=== PATIENT | female | born 1945 | race Caucasian/White ===

== ENCOUNTER 2016-11-13 18:16 | Emergency (ER) | payer MEDICARE ==
--- OUTSIDE RECORDS SUMMARY | 2016-11-13 18:50 | XMS REPORT | Clinical Summary ---
:1945 Author Organization [facility] [place] [address] Care Team Providers Name Role Phone Unavailable Primary Care Provider Unavailable Source Comments This disclosure is being made pursuant to the [employer] program and maynot contain all information available regarding this patient.[facility] Allergies Not on File Current Medications Be aware that medications may not be up to date as of this document. Alwaysverify current medications with the patient. Not on file Active Problems Not on file Social History Tobacco Use Types Packs/Day Years Used Date Never Assessed Sex Assigned at Date Recorded Not on file Last Filed Vital Signs Not on file Plan of Treatment Health Maintenance Due Date Last Done Comments Tetanus/Pertussis (1 - Tdap) 1966 Colonoscopy 1997 Mammogram 1997 Well Adult Visit 1997 Zoster Vaccine 60+ 2007 Bone Density 02/07/2012 Pneumococcal Low/Medium Risk 65+ (1 of 2 - PCV13) 02/07/2012 INFLUENZA IMMUNIZATION (#1) 2016 Results Not on filefrom Last 3 Months
[2016-11-13 19:06] LABS: Urine Bilirubin Negative (NEGATIVE); Urine Blood 250 /ul (NEGATIVE); Urine Ketone Negative (NEGATIVE); Urine Nitrite Negative (NEGATIVE); Urine Protein Negative (NEGATIVE); Urine Urobilinogen 4 EU/dl (NORMAL)
[2016-11-13 19:11] LABS: Hematocrit 31.9 % (37.0-47.0); Hemoglobin 10.7 gm/dL (12.5-16.0); Mean Cell Volume 93.5 fl (78-100); Mean Corpuscular Hemoglobin 31.4 pg (27-31); Mean Corpuscular Hgb Conc 33.5 g/dl (32-36); Mean Platelet Volume 10.6 fl (6.0-9.5); Neutrophil # 2.4 K/mm3 (1.3-6.0); Neutrophil % 54.5 % (42-75.0); Platelet Count 77 K/mm3 (150-450); Red Blood Count 3.41 M/mm3 (4.2-5.4); Red Cell Distribution Width 13.7 % (11.5-14.0); White Blood Count 4.5 K/mm3 (4.0-10.5)
[2016-11-13 19:16] LABS: Urine Appearance Slightly Cloudy; Urine Bacteria 3+; Urine Color Dark Yellow; Urine RBC 0-5 /hpf (0-5); Urine WBC 0-5 /hpf (0-5)
[2016-11-13 19:23] LABS: Albumin * 2.8 gm/dl (3.4-5.0); BUN/Creatinine Ratio 15.6 (9.0-21.6); Ca. Corrected For Albumin 9.5 mg/dL (8.4-10.2); Calcium * 8.9 mg/dL (7.9-10.9); Total Protein 6.8 gm/dL (6.2-8.2)
--- NOTE | 2016-11-13 19:32 | ERNOTE ---
ER Female HPI Date of Service: 11/13/16 Stated Complaint: URINARY PROBLEM Presenting Symptoms: dysuria Time Seen by Provider: 11/13/16 18:42 Source: patient, RN notes reviewed, past records Exam Limitations: no limitations Immunizations: IMMUNIZATION HX Immunizations Up to Date Yes History of Influenza Vaccine Yes Hx Pneumococcal Vaccination No Allergies/Adverse Reactions: Allergies No Known Allergies Allergy (Verified 11/13/16 18:34) Home Medications: HOME MEDICATIONS Atorvastatin Calcium 20 mg PO HS 11/13/16 [Last Taken Unknown] Ciprofloxacin HCl [Cipro] 500 mg PO BID #20 tablet 11/13/16 [Last Taken Unknown] Gabapentin [Neurontin] 600 mg PO BID 11/13/16 [Last Taken Unknown] Insulin Detemir [Levemir] 28 units SC HS 11/13/16 [Last Taken Unknown] Phenazopyridine HCl 200 mg PO Q8H PRN #6 tablet 11/13/16 [Last Taken Unknown] Propranolol HCl 20 mg PO BID 11/13/16 [Last Taken Unknown] glipiZIDE [Glipizide] 5 mg PO BID 11/13/16 [Last Taken Unknown] metFORMIN HCL [Glucophage] 1,000 mg PO BIDWM 11/13/16 [Last Taken Unknown] rOPINIRole HCL [Requip] 2 mg PO HS 11/13/16 [Last Taken Unknown] traZODone HCL [Trazodone HCl] 25 mg PO HS 11/13/16 [Last Taken Unknown] - History of Present Illness Narrative: 71 y/o female to ED by private vehicle with her daughter for dysuria and not feeling well for the past week. She reports pain in her right flank and suprapubic region. She reports being incontinent of urine and stool, but this is chronic. She saw her PCP for a routine checkup on 11/06/16. She did report fatigue at that time. Her lab work was stable. Prior Treatment: Present: recently seen. Absent: currently on antibiotics Review of Systems - Review of Systems Constitutional: Present: fatigue, malaise. Absent: recent illness, fever, chills EYE: Present: no symptoms reported ENT: Present: no symptoms reported Respiratory: Absent: shortness of breath, cough Cardiology: Present: edema. Absent: chest pain, syncope Gastrointestinal/Abdominal: Present: diarrhea. Absent: nausea, vomiting Genitourinary: Present: frequency, dysuria. Absent: hematuria, decreased urinary output Musculoskeletal: Present: back pain. Absent: joint pain, joint swelling Skin: Absent: rash, lesions Neurological: Absent: headache, dizziness/light-headedness Endocrine: Present: no symptoms reported Hematologic/Lymphatic: Absent: easy bruising, easy bleeding Psych: Present: no symptoms reported - Patient's Past Medical History Patient History - Medical: Diabetes Type 2 Insulin Dependent Patient History - Cardiac/Respiratory: Hyperlipidemia Patient History - Cancer: No Hx of Cancer Patient History - Surgical Procedures: Cholecystectomy, Hysterectomy, Total Knee Replacement, Orthopedic Patient History - Other: None LMP (females 10-50): Menopausal - Social History Living Situations: home Psych History: Current tx/ever been on anti-depressants or anti-anxiety meds Smoking Status: Never smoker Alcohol Use: rarely Drug Use: none - Immunizations Immunizations Up to Date: Yes Hx Pneumococcal Vaccination: No History of Influenza Vaccine: Yes Physical Exam - Physical Exam General Appearance: Present: wd/wn, alert, obese, other - appears uncomfortable Neck: Present: normal inspection, nontender, supple Respiratory: Present: no respiratory distress, normal breath sounds, no accessory muscle use, lungs clear Cardiovascular/Chest: Present: regular rate, rhythm, no murmur, normal peripheral pulses Gastrointestinal/Abdominal: Present: nontender, nondistended, soft Back Exam: Present: CVA tenderness (R). Absent: CVA tenderness (L) Extremity Exam: Present: non-tender, normal range of motion, pedal edema Neurological Exam: Present: alert, oriented, no motor/sensory deficits, other - Appears depressed. Absent: normal mood/affect Skin Exam: Present: normal color, warm/dry ED Progress - Results and Orders Patient's Lab Results:: I have reviewed the patient's lab results. Results and Orders: Laboratory Tests 11/13/16 11/13/16 19:08 19:08 WBC 4.5 RBC 3.41 L Hgb 10.7 L Hct 31.9 L Plt Count 77 L Random Glucose 281 H - Vital Signs Vital Signs: Vital Signs 11/13/16 18:21 Temperature 37.0 C Pulse Rate 75 Respiratory 18 Rate Blood Pressure 142/66 O2 Sat by Pulse 97 Oximetry - Progress/Reassessment Chief Complaint: Genitourinary Problem Progress:: Improved Plan - Plan Plan: Patient is afebrile with a normal WBC and no vomiting. IM Rocephin given. Rx for Cipro. Discussed returning if attempted outpatient treatment is unsuccessful. Patient in agreement with plan. Departure Clinical Impression: Acute pyelonephritis - Departure Disposition: Home Follow Up Needed Condition: Stable Instructions: Pyelonephritis, Adult, [id number] Additional Instructions: Drink plenty of water Follow up with your doctor to recheck your urine after you are finished with your antibiotics Return to the ER for vomiting, high fever, or other worsening symptoms Prescriptions: Ciprofloxacin HCl [Cipro] 500 mg PO BID #20 tablet Phenazopyridine HCl 200 mg PO Q8H PRN #6 tablet PRN Reason: Pain
[2016-11-13 19:33] VITALS: BP 133/51
[2016-11-13] MEDS ORDERED: KETOROLAC TROMETHAMINE 60 MG/2 ML VIAL IM ONE ×2 (19:35→19:36)
[2016-11-13] MEDS ORDERED: PHENAZOPYRIDINE HCL 100 MG TABLET PO ONE (19:56)
[2016-11-13] MEDS ORDERED: PHENAZOPYRIDINE HCL 100 MG TABLET ONE (19:59)
== END 2016-11-13 20:12 | disposition home or self-care (01) ==
LOC: ER 18:16
DX: N10 Acute pyelonephritis (principal); E11.9 Type 2 diabetes mellitus without complications; Z79.4 Long term (current) use of insulin; E78.5 Hyperlipidemia, unspecified

== ENCOUNTER 2016-11-16 18:40 | Emergency (ER) | payer MEDICARE ==
[2016-11-16 18:57] VITALS: BP 133/69
--- OUTSIDE RECORDS SUMMARY | 2016-11-16 20:20 | XMS REPORT | Clinical Summary ---
:1945 Author Organization [employer] [place] [address] Care Team Providers Name Role Phone Unavailable Primary Care Provider Unavailable Source Comments This disclosure is being made pursuant to the [employer] program and maynot contain all information available regarding this patient.[employer] Allergies Not on File Current Medications Be [...]
== END 2016-11-16 19:39 | disposition left against medical advice (07) ==
LOC: ER 18:40
DX: Z53.21 Procedure and treatment not carried out due to patient leaving prior to being seen by health care provider (principal)

== ENCOUNTER 2016-11-18 13:18 | Emergency (ER) | payer MEDICARE ==
[2016-11-18] MEDS ORDERED: HYDROcodone/ACETAMINOPHEN 1 EACH TABLET ONE (13:22)
--- OUTSIDE RECORDS SUMMARY | 2016-11-18 13:57 | XMS REPORT | Clinical Summary ---
:1945 Author Organization [facility] Address [place] [address] Care Team Providers Name Role Phone Unavailable Primary Care Provider Unavailable Source Comments This disclosure is being made pursuant to the [employer] program and maynot contain all information available regarding this patient.[facility] Allergies Not on File Current Medications Be [...]
[2016-11-18] MEDS ORDERED: MECLIZINE HCL 25 MG TABLET PO ONE (13:59)
[2016-11-18] MEDS ORDERED: MECLIZINE HCL 25 MG TABLET ONE (14:09)
[2016-11-18 14:12] LABS: Hematocrit 32.3 % (37.0-47.0); Hemoglobin 10.6 gm/dL (12.5-16.0); Mean Cell Volume 93.9 fl (78-100); Mean Corpuscular Hemoglobin 30.8 pg (27-31); Mean Corpuscular Hgb Conc 32.8 g/dl (32-36); Mean Platelet Volume 10.4 fl (6.0-9.5); Neutrophil # 2.6 K/mm3 (1.3-6.0); Neutrophil % 58.6 % (42-75.0); Platelet Count 70 K/mm3 (150-450); Red Blood Count 3.44 M/mm3 (4.2-5.4); Red Cell Distribution Width 13.5 % (11.5-14.0); White Blood Count 4.4 K/mm3 (4.0-10.5)
[2016-11-18 14:19] LABS: Albumin * 2.8 gm/dl (3.4-5.0); Anion Gap 14.5 mmol/L (6.8-13.8); BUN/Creatinine Ratio 15.1 (9.0-21.6); Bilirubin, Total 0.8 mg/dL (0.0-1.1); Ca. Corrected For Albumin 9.6 mg/dL (8.4-10.2); Carbon Dioxide 25.7 mmol/L (24-32.6); Potassium 4.2 mmol/L (3.4-4.6); Total Protein 6.5 gm/dL (6.2-8.2)
--- NOTE | 2016-11-18 14:26 | ERNOTE ---
Dizziness ER Record Date of Service: 11/18/16 Presenting Symptoms: dizziness Time Seen by Provider: 11/18/16 13:51 Source: patient, RN notes reviewed Exam Limitations: no limitations Immunizations: IMMUNIZATION HX Immunizations Up to Date Yes History of Influenza Vaccine Yes Hx Pneumococcal Vaccination No Allergies/Adverse Reactions: Allergies Allergy/AdvReac Type Severity Reaction Status Date / Time No Known Allergies Allergy Verified 11/13/16 18:34 Home Medications: HOME MEDICATIONS Atorvastatin Calcium 20 mg PO HS 11/13/16 [Last Taken Unknown] Gabapentin [Neurontin] 600 mg PO BID 11/13/16 [Last Taken Unknown] Insulin Detemir [Levemir] 28 units SC HS 11/13/16 [Last Taken Unknown] Propranolol HCl 20 mg PO BID 11/13/16 [Last Taken Unknown] glipiZIDE [Glipizide] 5 mg PO BID 11/13/16 [Last Taken Unknown] metFORMIN HCL [Glucophage] 1,000 mg PO BIDWM 11/13/16 [Last Taken Unknown] rOPINIRole HCL [Requip] 2 mg PO HS 11/13/16 [Last Taken Unknown] traZODone HCL [Trazodone HCl] 25 mg PO HS 11/13/16 [Last Taken Unknown] Ferrous Sulfate [Iron] 325 mg PO DAILY 11/18/16 [Last Taken Unknown] Meclizine HCl [Dramamine Less Drowsy] 25 mg PO Q8H PRN #20 tablet 11/18/16 [ Last Taken Unknown] Melatonin 6 mg PO HS 11/18/16 [Last Taken Unknown] - History of Present Illness Narrative: 71 y/o female brought to the ED by her daughter for dizziness. I saw the patient on 11/13/16. She was having flank pain and had not felt well for several days. She was found to have a UTI and was started on Cipro. Her culture grew e.coli that was sensitive. She began having dizziness the following day. Yesterday, the dizziness seemed to have resolved, but today it has been constant since she woke up. She is still on the Cipro. She has not taken anything for the dizziness. Timing and Duration: gradual onset Noted on awakening:: Yes Severity: max: moderate Severity: currently: moderate Associated Symptoms: Present: light headedness. Absent: hearing loss, ringing/ roaring in ear, ear pain, nausea, vomiting, headache, weakness, numbness, sweating, sense of confusion Sense of movement: Present: vague Decreased ability to stand/walk:: Present: walks w/o assistance Usually:: Present: walks w/o assistance Prior Treament: Reports: recently seen, treated by physician, currently on antibiotics Review of Systems - Review of Systems Constitutional: Present: recent illness, malaise. Absent: fever, chills EYE: Absent: eye pain, vision changes ENT: Absent: ear pain, nose congestion Respiratory: Absent: shortness of breath, cough Cardiology: Absent: chest pain, palpitations, syncope Gastrointestinal/Abdominal: Absent: nausea, vomiting, abdominal pain Genitourinary: Absent: dysuria, hematuria Musculoskeletal: Absent: neck pain, joint pain Skin: Absent: rash, lesions Neurological: Present: dizziness/light-headedness. Absent: headache, weakness, numbness, tingling Endocrine: Present: no symptoms reported Hematologic/Lymphatic: Present: no symptoms reported Psych: Present: no symptoms reported - Patient's Past Medical History Patient History - Medical: Anemia, Diabetes Type 2 Insulin Dependent, Other Patient History - Cardiac/Respiratory: Hyperlipidemia, Sleep Apnea Patient History - Cancer: No Hx of Cancer Patient History - Surgical Procedures: Cholecystectomy, Hysterectomy, Total Knee Replacement, Orthopedic Patient History - Other: None LMP (females 10-50): Menopausal - Social History Living Situations: home Abuse History: No History of abuse Psych History: Hx of Anxiety, Hx of Depression, Current tx/ever been on anti- depressants or anti-anxiety meds Smoking Status: Never smoker Have you smoked in the past 12 months: No Do you dip or chew tobacco: No Alcohol Use: rarely Drug Use: none - Immunizations Immunizations Up to Date: Yes Hx Pneumococcal Vaccination: No History of Influenza Vaccine: Yes Physical Exam - Physical Exam General Appearance: Present: alert, mild distress, anxious Head Exam: Present: normal inspection, no evidence of injury Eye Exam: Normal inspection: bilateral, PERRL: bilateral, EOMI: bilateral Ears, Nose, Throat: Present: normal ENT inspection Neck: Present: normal inspection, nontender, supple Respiratory: Present: no respiratory distress, normal breath sounds, no accessory muscle use, lungs clear Cardiovascular/Chest: Present: regular rate, rhythm, no murmur, normal peripheral pulses Gastrointestinal/Abdominal: Present: nontender, nondistended, soft Extremity Exam: Present: normal inspection, normal range of motion, no edema Neurological Exam: Present: alert, oriented, normal mood/affect, no motor/ sensory deficits Skin Exam: Present: normal color, warm/dry ED Progress - Results and Orders Patient's Lab Results:: I have reviewed the patient's lab results. - Vital Signs Patient's Vital Signs:: I have reviewed the patient's vital signs. Vital Signs: Vital Signs 11/18/16 13:27 Temperature 36.2 C L Pulse Rate 63 Respiratory 17 Rate Blood Pressure 122/55 O2 Sat by Pulse 98 Oximetry - EKG EKG: NSR EKG read: Reviewed by me - Progress/Reassessment Chief Complaint: Dizziness Progress:: Improved Progress Note-Subjective: 11/18/16 15:18 Dizziness improved with meclizine. Lab work is unremarkable and UA shows that UTI has resolved. To stop Cipro as I suspect this is the cause of the dizziness. Has f/u with Dr. Tavarez in 1 wk, to return if symptoms worsen in the meantime. Departure Clinical Impression: Dizziness - Departure Disposition: Home Follow Up Needed Condition: Stable Instructions: Dizziness, [id number] Additional Instructions: Stop Cipro Take Meclizine for dizziness as directed Follow up with Dr. Tavarez as scheduled or return to the ER if symptoms worsen Referrals: Andres Tavarez MD [Primary Care Provider] - Prescriptions: Meclizine HCl [Dramamine Less Drowsy] 25 mg PO Q8H PRN #20 tablet PRN Reason: Vertigo
[2016-11-18 14:28] LABS: Urine Bilirubin Negative (NEGATIVE); Urine Blood Negative /ul (NEGATIVE); Urine Ketone Negative (NEGATIVE); Urine Nitrite Negative (NEGATIVE); Urine Protein Negative (NEGATIVE); Urine Specific Gravity <=1.005 SP.GR. (1.005-1.010); Urine Urobilinogen Normal (NORMAL)
[2016-11-18 14:46] LABS: Urine Appearance Clear; Urine Bacteria None Seen; Urine Color Yellow; Urine RBC None Seen /hpf (0-5); Urine WBC None Seen /hpf (0-5)
[2016-11-18 15:13] VITALS: BP 110/43
== END 2016-11-18 15:30 | disposition home or self-care (01) ==
LOC: ER 13:18
DX: R42 Dizziness and giddiness (principal); D64.9 Anemia, unspecified; E11.9 Type 2 diabetes mellitus without complications; Z79.4 Long term (current) use of insulin; E78.5 Hyperlipidemia, unspecified

== ENCOUNTER 2017-01-22 17:32 | Emergency (ER) | payer MEDICARE ==
[2017-01-22 17:55] VITALS: BP 135/66
== END 2017-01-22 18:57 | disposition left against medical advice (07) ==
LOC: ER 17:32
DX: Z53.21 Procedure and treatment not carried out due to patient leaving prior to being seen by health care provider (principal)

== ENCOUNTER 2017-02-03 07:00 | Day surgery (SDC) | payer MEDICARE ==
[2017-02-03] MEDS ORDERED: RINGER'S SOLUTION,LACTATED 1,000 ML IV ONE (08:15)
[2017-02-03] MEDS ORDERED: IOPAMIDOL 20 ML VIAL IJ ONE (08:23)
[2017-02-03] MEDS ORDERED: LIDOCAINE HCL/PF 5 ML VIAL IJ ONE (08:28)
[2017-02-03] MEDS ORDERED: DEXAMETHASONE SOD PHOSPHATE 10 MG/ML VIAL IJ ONE (08:28)
--- NOTE | 2017-02-03 09:03 | OR ---
Anesthesia Pre Procedure Eval Pre Procedure Evaluation: Last Vital Signs Temp 36.4 C L 02/03/17 07:15 Pulse 81 02/03/17 08:44 Resp 16 02/03/17 08:44 BP 154/89 02/03/17 08:44 Pulse Ox 97 02/03/17 08:44 O2 Oxygen Delivery Method Nasal Cannula PRE PROCEDURE EVALUATION:: DATE: 02/03/2017 TIME: 50 INDICATIONS: Radicular low back pain. Bulging disc L4 5. PAST MEDICAL HISTORY: Patient had previous epidural injection approximately 3 years ago. This was done at a facility in [place]. Patient states that cortisone injections in her back have not helped her in the past. However, she wishes to proceed with this procedure. EXAM: Lungs clear and equal. Heart rate regular. Patient complains of low back pain and pain in her tailbone that radiates into her right hip and right leg. She complains more of tingling in her right leg. Procedure risks and benefits were explained to and accepted by the patient. ASSESSMENT OF MEDICAL STATUS: No contraindication to epidural steroid injection. PLANNED PROCEDURE : Fluoroscopy-guided epidural steroid injection at L4 5. Patient requests IV sedation for procedure. Home Medications: HOME MEDICATIONS Atorvastatin Calcium 20 mg PO HS 11/13/16 [Last Taken Unknown] Gabapentin [Neurontin] 600 mg PO BID 11/13/16 [Last Taken Unknown] Insulin Detemir [Levemir] 28 units SC HS 11/13/16 [Last Taken Unknown] Propranolol HCl 20 mg PO BID 11/13/16 [Last Taken Unknown] glipiZIDE [Glipizide] 5 mg PO BID 11/13/16 [Last Taken Unknown] metFORMIN HCL [Glucophage] 1,000 mg PO BIDWM 11/13/16 [Last Taken Unknown] rOPINIRole HCL [Requip] 2 mg PO HS 11/13/16 [Last Taken Unknown] traZODone HCL [Trazodone HCl] 25 mg PO HS 11/13/16 [Last Taken Unknown] Ferrous Sulfate [Iron] 325 mg PO DAILY 11/18/16 [Last Taken Unknown] Meclizine HCl [Dramamine Less Drowsy] 25 mg PO Q8H PRN #20 tablet 11/18/16 [ Last Taken Unknown] Melatonin 6 mg PO HS 11/18/16 [Last Taken Unknown] Cyclobenzaprine HCl 5 mg PO TID PRN 10/19/17 [Last Taken Unknown] HYDROcodone/ACETAMINOPHEN [[place] 5-325] 1 tab PO Q6H PRN 01/30/17 [Last Taken Unknown] LORazepam [Ativan] 1 mg PO ONCE 01/30/17 [Last Taken Unknown]
--- NOTE | 2017-02-03 09:07 | OR ---
Anesthesia Procedure Note - Anesthesia Procedure Note Narrative: Vital Signs - Last Taken Temp 36.4 C L 02/03/17 07:15 Pulse 81 02/03/17 08:44 Resp 16 02/03/17 08:44 BP 154/89 02/03/17 08:44 Pulse Ox 97 02/03/17 08:44 O2 Oxygen Delivery Method Nasal Cannula 02/03/17 09:03 ANESTHESIA PROCEDURE NOTE Date of Procedure: 02/03/2017 Time of procedure: 12 11. Performed by: Francis Recinos CRNA Social Services Counselor: None. Preprocedure diagnosis: Radicular low back pain. Bulging disc at L4 5.. Post procedure diagnosis: Same. Procedure: Epidural Steroid Injection at L4 5 under fluoroscopic guidance. Indications: Radicular low back pain. Findings: See below. Details of the procedure: The patient was brought back to operating room #2. 22 -gauge Angiocath IV was started in patient's right hand. 5 mg of Versed and 100 g of fentanyl was given for sedation. The patient was then placed in the prone position. Back was prepped with DuraPrep. Patient was then draped in sterile fashion. Lidocaine 1% was infiltrated to the skin and subcutaneous tissues at the level of the L4 5 interspace. The epidural space was identified using a 18-gauge six-inch Tuohy needle with [id number] technique and fluoroscopic guidance. A total of 4 mL of Isovue-200 contrast dye was injected in first the lateral and AP positions to confirm needle placement. Dexamethasone 10 mg + 5 mL of 1% preservative-free lidocaine was administered to the epidural space after negative aspiration for blood and CSF. The Tuohy needle was removed intact. A Band-Aid was applied to the patient's back. The patient was then placed in a supine position for 5 minutes before returning to the ambulatory surgical unit. EBL: Minimal. Fluids: N/A. Specimen: N/A. Post procedure condition: The patient tolerated the procedure well. No complications were noted. Thank you for this consultation. Francis Recinos CRNA
[2017-02-03 10:04] VITALS: BP 146/71
== END 2017-02-03 07:01 | disposition home or self-care (01) ==
LOC: AMB 07:00
PROVIDERS: ATTEND Internal Medicine
PROC: 3E0S3BZ Introduction of Anesthetic Agent into Epidural Space, Percutaneous Approach (ICD-10-PCS; 2017-02-03)
PROC: 3E0S33Z Introduction of Anti-inflammatory into Epidural Space, Percutaneous Approach (ICD-10-PCS; principal; 2017-02-03 08:00)
DX: M51.26 Other intervertebral disc displacement, lumbar region (principal)

== ENCOUNTER 2017-05-09 16:04 | Inpatient (IN) | payer MEDICARE ==
[2017-05-09 16:43] LABS: Hematocrit 30.9 % (37.0-47.0); Hemoglobin 9.9 gm/dL (12.5-16.0); Mean Cell Volume 92.8 fl (78-100); Mean Corpuscular Hemoglobin 29.7 pg (27-31); Mean Platelet Volume 10.4 fl (6.0-9.5); Neutrophil % 80.2 % (42-75.0); Platelet Count 61 K/mm3 (150-450); Red Blood Count 3.33 M/mm3 (4.2-5.4); Red Cell Distribution Width 14.3 % (11.5-14.0); White Blood Count 2.5 K/mm3 (4.0-10.5)
[2017-05-09 17:07] LABS: Albumin * 2.5 gm/dl (3.4-5.0); Anion Gap 12.5 mmol/L (6.8-13.8); BUN/Creatinine Ratio 14.5 (9.0-21.6); Bilirubin, Total 1.1 mg/dL (0.0-1.1); Ca. Corrected For Albumin 9.5 mg/dL (8.4-10.2); Calcium * 8.6 mg/dL (7.9-10.9); Carbon Dioxide 23.7 mmol/L (24-32.6); Potassium 4.2 mmol/L (3.4-4.6); Total Protein 6.4 gm/dL (6.2-8.2); Troponin I 0.024 ng/ml (0.00-0.10)
[2017-05-09] MEDS ORDERED: ALBUTEROL SULFATE 2.5 MG/0.5 ML VIAL.NEB IH ONE ×2 (19:18→19:20)
[2017-05-09] MEDS ORDERED: ACETAMINOPHEN 325 MG TABLET PO ONE (19:33)
[2017-05-09] MEDS ORDERED: ACETAMINOPHEN 325 MG TABLET ONE (19:34)
--- NOTE | 2017-05-09 19:51 | ERNOTE ---
Dyspnea - Date Date of Service: 05/09/17 - General Presenting Symptoms: shortness of breath Time Seen by Provider: 05/09/17 16:07 Source: patient Exam Limitations: no limitations - Immun/Allergies/Home Medications Immunizations: IMMUNIZATION HX Immunizations Up to Date Yes History of Influenza Vaccine Yes Hx Pneumococcal Vaccination Yes Allergies/Adverse Reactions: Allergies No Known Allergies Allergy (Verified 05/08/17 09:29) Home Medications: HOME MEDICATIONS Atorvastatin Calcium 20 mg PO HS 11/13/16 [Last Taken Unknown] Gabapentin [Neurontin] 600 mg PO BID 11/13/16 [Last Taken Unknown] Insulin Detemir [Levemir] 28 units SC HS 11/13/16 [Last Taken Unknown] Propranolol HCl 20 mg PO BID 11/13/16 [Last Taken Unknown] glipiZIDE [Glipizide] 5 mg PO BID 11/13/16 [Last Taken Unknown] metFORMIN HCL [Glucophage] 1,000 mg PO BIDWM 11/13/16 [Last Taken Unknown] rOPINIRole HCL [Requip] 2 mg PO HS 11/13/16 [Last Taken Unknown] traZODone HCL [Trazodone HCl] 25 mg PO HS 11/13/16 [Last Taken Unknown] Ferrous Sulfate [Iron] 325 mg PO DAILY 11/18/16 [Last Taken Unknown] Meclizine HCl [Dramamine Less Drowsy] 25 mg PO Q8H PRN #20 tablet 11/18/16 [ Last Taken Unknown] Melatonin 6 mg PO HS 11/18/16 [Last Taken Unknown] Cyclobenzaprine HCl 5 mg PO TID PRN 01/30/17 [Last Taken Unknown] HYDROcodone/ACETAMINOPHEN [[place] 5-325] 1 tab PO Q6H PRN 01/30/17 [Last Taken Unknown] Albuterol Sulfate [Albuterol Sulfate 2.5 MG/3 ML] 2.5 mg IH Q4H PRN #1 vial.neb 05/08/17 [Last Taken Unknown] Albuterol Sulfate [Proair Hfa] 2 puff IH Q4H PRN #1 inhaler 05/08/17 [Last Taken Unknown] Levofloxacin [Levaquin] 500 mg PO DAILY 9 Days #9 tab 05/08/17 [Last Taken Unknown] Nebulizer [Aeroeclipse II] 1 each MC Q4H #1 each 05/08/17 [Last Taken Unknown] predniSONE [Prednisone] 2 tab PO DAILY 5 Days #10 tab 05/08/17 [Last Taken Unknown] - History of Present Illness Narrative: Patient presents to the ED with worsening Sx. She feels increasingly SOB and weak. I saw her 24 hours ago and she was treated with ABx, steriods and nebulizer. Despite this she has continued to worsen and she called the ambulance today. Nothing makes this worse. Nothing makes this better or worse. No CP. No abdominal pain. Decreased oral intake. Severity: severe Treatment GROUP CAPTAIN: paramedics Initiating event: Reports: upper resp illness Modifying Factors - (Improves): Reports: nothing Modifying Factors (Worsens): Reports: nothing Associated Symptoms-Dyspnea: Reports: fever/chills, cough, wheezing, weakness Prior Treatment: Reports: recently seen, treated by physician Review of Systems - Review of Systems EYE: Absent: vision changes ENT: Present: nose congestion Respiratory: Present: shortness of breath, cough Cardiology: Absent: chest pain Gastrointestinal/Abdominal: Absent: abdominal pain Genitourinary: Absent: dysuria All Other Systems: All systems neg except as marked - Patient's Past Medical History Patient History - Medical: Anemia, Anxiety, Diabetes Type 2 Insulin Dependent, Depression, Other Patient History - Cardiac/Respiratory: Hyperlipidemia, Sleep Apnea Patient History - Cancer: No Hx of Cancer Patient History - Surgical Procedures: Cholecystectomy, Hysterectomy, Orthopedic Patient History - Other: None LMP (females 10-50): Menopausal - Social History Living Situations: home Abuse History: No History of abuse Psych History: Hx of Anxiety, Hx of Depression, Current tx/ever been on anti- depressants or anti-anxiety meds Smoking Status: Never smoker Alcohol Use: occasionally Drug Use: none - Immunizations Immunizations Up to Date: Yes Hx Pneumococcal Vaccination: Yes History of Influenza Vaccine: Yes Physical Exam - Physical Exam General Appearance: Present: alert, other - coughing Eye Exam: Normal inspection: bilateral, PERRL: bilateral Ears, Nose, Throat: Present: nasal congestion. Absent: pharyngeal erythema, pharyngeal swelling, tonsillar exudate Neck: Present: normal inspection Respiratory: Present: no respiratory distress, no accessory muscle use, wheezing Cardiovascular/Chest: Present: regular rate, rhythm Gastrointestinal/Abdominal: Present: normal bowel sounds, nontender, soft Back Exam: Absent: CVA tenderness (R), CVA tenderness (L) Extremity Exam: Present: other - no DVT findings Neurological Exam: Present: alert, no motor/sensory deficits Skin Exam: Present: normal color, warm/dry ED Progress - Results and Orders Patient's Lab Results:: I have reviewed the patient's lab results. - Vital Signs Patient's Vital Signs:: I have reviewed the patient's vital signs. Vital Signs: Vital Signs 05/09/17 05/09/17 05/09/17 16:06 16:21 16:43 Temperature 37.1 C Pulse Rate 85 86 84 Respiratory 27 H 20 13 Rate Blood Pressure 131/52 131/52 119/44 O2 Sat by Pulse 96 96 97 Oximetry 05/09/17 05/09/17 05/09/17 16:44 17:03 17:29 Temperature Pulse Rate 84 83 82 Respiratory 11 L 15 19 Rate Blood Pressure 119/44 124/45 124/47 O2 Sat by Pulse 97 97 97 Oximetry 05/09/17 05/09/17 05/09/17 18:02 18:34 19:00 Temperature 36.8 C Pulse Rate 82 85 81 Respiratory 18 20 16 Rate Blood Pressure 125/47 129/43 113/50 O2 Sat by Pulse 97 98 97 Oximetry 05/09/17 05/09/17 19:21 19:30 Temperature Pulse Rate 81 81 Respiratory 18 18 Rate Blood Pressure 120/49 O2 Sat by Pulse 97 99 Oximetry - X-Ray X-Ray #1 X-Ray: chest Interpretation: Interp. by me X-ray Comments: I reviewed CXR results - Progress/Reassessment Chief Complaint: Dyspnea Progress Note-Subjective: 05/09/17 19:47 Patient did not feel well enough to go home. D/W [place], hospitalist will admit. Departure Clinical Impression: Complicated bronchitis, Failure of outpatient treatment, Generalized weakness - Departure Disposition: [facility] Condition: Stable
--- NOTE | 2017-05-09 22:36 | ERNOTE ---
Dyspnea - General Presenting Symptoms: shortness of breath Time Seen by Provider: 05/09/17 16:07 - Immun/Allergies/Home Medications Immunizations: IMMUNIZATION HX Immunizations Up to Date Yes History of Influenza Vaccine Yes Hx Pneumococcal Vaccination Yes Allergies/Adverse Reactions: Allergies No Known Allergies Allergy (Verified 05/08/17 09:29) Home Medications: HOME MEDICATIONS Atorvastatin Calcium 20 mg PO HS 11/13/16 [Last Taken Unknown] Gabapentin [Neurontin] 600 mg PO BID 11/13/16 [Last Taken Unknown] Insulin Detemir [Levemir] 30 units SC HS 11/13/16 [Last Taken Unknown] Propranolol HCl 20 mg PO BID 11/13/16 [Last Taken Unknown] glipiZIDE [Glipizide] 5 mg PO BID 11/13/16 [Last Taken Unknown] metFORMIN HCL [Glucophage] 1,000 mg PO BIDWM 11/13/16 [Last Taken Unknown] rOPINIRole HCL [Requip] 2 mg PO HS 11/13/16 [Last Taken Unknown] traZODone HCL [Trazodone HCl] 25 mg PO HS 11/13/16 [Last Taken Unknown] Meclizine HCl [Dramamine Less Drowsy] 25 mg PO Q8H PRN #20 tablet 11/18/16 [ Last Taken Unknown] Melatonin 6 mg PO HS 11/18/16 [Last Taken Unknown] Albuterol Sulfate [Albuterol Sulfate 2.5 MG/3 ML] 2.5 mg IH Q4H PRN #1 vial.neb 05/08/17 [Last Taken Unknown] Albuterol Sulfate [Proair Hfa] 2 puff IH Q4H PRN #1 inhaler 05/08/17 [Last Taken Unknown] Levofloxacin [Levaquin] 500 mg PO DAILY 9 Days #9 tab 05/08/17 [Last Taken Unknown] Nebulizer [Aeroeclipse II] 1 each MC Q4H #1 each 05/08/17 [Last Taken Unknown] predniSONE [Prednisone] 2 tab PO DAILY 5 Days #10 tab 05/08/17 [Last Taken Unknown] - History of Present Illness Narrative: Hospitalist requested a CT prior to going to the floor, ordered a D-Dimer, which was positive, getting a CTA of the chest. - Patient's Past Medical History Patient History - Medical: Anemia, Anxiety, Diabetes Type 2 Insulin Dependent, Depression, Other Patient History - Cardiac/Respiratory: Hyperlipidemia, Sleep Apnea Patient History - Cancer: No Hx of Cancer Patient History - Surgical Procedures: Cholecystectomy, Hysterectomy, Orthopedic Patient History - Other: None LMP (females 10-50): Menopausal - Social History Living Situations: home Abuse History: No History of abuse Psych History: Hx of Anxiety, Hx of Depression, Current tx/ever been on anti- depressants or anti-anxiety meds Smoking Status: Never smoker Alcohol Use: occasionally Drug Use: none - Immunizations Immunizations Up to Date: Yes Hx Pneumococcal Vaccination: Yes History of Influenza Vaccine: Yes ED Progress - Results and Orders Patient's Lab Results:: I have reviewed the patient's lab results. Results and Orders: Laboratory Results - last 24 hr 05/09/17 05/09/17 05/09/17 16:35 16:35 16:35 WBC 2.5 L D RBC 3.33 L Hgb 9.9 L Hct 30.9 L MCV 92.8 MCH 29.7 MCHC 32.0 RDW 14.3 H Plt Count 61 L MPV 10.4 H Immature Gran % (Auto) 0.80 H Immature Gran # (Auto) 0.02 Neutrophils % 80.2 H Lymphocytes % 12.1 L Monocytes % 5.3 Eosinophils % 1.2 Basophils % 0.4 Nucleated RBC % 0.0 Neutrophils # 2.0 Lymphocytes # 0.3 L Monocytes # 0.1 Eosinophils # 0.0 Absolute Basophils 0.0 D-Dimer 1.06 H Sodium 141 Plasma Sodium 146 H Potassium 4.2 Chloride 109 H Carbon Dioxide 23.7 L Anion Gap 12.5 BUN 16 Creatinine 1.10 Est GFR (Non-Af Amer) 52 L D BUN/Creatinine Ratio 14.5 Random Glucose 424 H D Calcium 8.6 Calcium Adj for Albumin 9.5 Total Bilirubin 1.1 AST 29 ALT 26 Alkaline Phosphatase 129 Troponin I 0.024 B-Natriuretic Peptide 190 Total Protein 6.4 Albumin 2.5 L - Vital Signs Patient's Vital Signs:: I have reviewed the patient's vital signs. Vital Signs: Vital Signs 05/09/17 05/09/17 05/09/17 16:06 16:21 16:43 Temperature 37.1 C Pulse Rate 85 86 84 Respiratory 27 H 20 13 Rate Blood Pressure 131/52 131/52 119/44 O2 Sat by Pulse 96 96 97 Oximetry 05/09/17 05/09/17 05/09/17 16:44 17:03 17:29 Temperature Pulse Rate 84 83 82 Respiratory 11 L 15 19 Rate Blood Pressure 119/44 124/45 124/47 O2 Sat by Pulse 97 97 97 Oximetry 05/09/17 05/09/17 05/09/17 18:02 18:34 19:00 Temperature 36.8 C Pulse Rate 82 85 81 Respiratory 18 20 16 Rate Blood Pressure 125/47 129/43 113/50 O2 Sat by Pulse 97 98 97 Oximetry 05/09/17 05/09/17 05/09/17 19:21 19:30 20:22 Temperature Pulse Rate 81 81 79 Respiratory 18 18 18 Rate Blood Pressure 120/49 116/49 O2 Sat by Pulse 97 99 98 Oximetry 05/09/17 05/09/17 05/09/17 20:30 21:00 21:49 Temperature Pulse Rate 79 78 76 Respiratory 16 18 18 Rate Blood Pressure 120/45 108/41 144/44 O2 Sat by Pulse 97 96 Oximetry - CT/Ultrasound CT/Ultrasound Narrative: CT scan: No central pulmonary embolism. - Progress/Reassessment Chief Complaint: Dyspnea Progress Note-Subjective: 05/09/17 22:36 CTA did not show any PE, admission going forward. Departure Clinical Impression: Complicated bronchitis, Failure of outpatient treatment, Generalized weakness - Departure Disposition: [facility] Condition: Stable Referrals: Andres Tavarez MD [Primary Care Provider] -
--- NOTE | 2017-05-09 23:32 | HP ---
Chief Complaint - Chief Complaint Date of Service: 05/09/17 Time of Service: 22:57 Chief Complaint: "Worsening SOB, Coughing, heavy legs". Source of HPI- Pt; reliable, ERP report, pt's EMR. History of Present Illness: Ms. Guzman is a 72-yr-old [place] pt of Dr. Andres Tavarez with a PMH of: Anemia ( Iron deficiency), DM II, HLD, Portal Hypertension & Sleep Apnea. Pt states that she visited family in [place] 1 week ago and was in an approximately [address] On Friday 05/05 when she arrived back, she begun feeling SOB. On Friday her, she begun Coughing, wheezing and her SOB seemed to get worse. She continued feeling so until 05/08 when she came to the [facility] ER via the ambulance. She attributed her symptoms to the cold and hot weather changes from being in different regions. At the ED, she received treatment with nebs which resolved the wheezing. The CXR was not to have any acute findings. There was no hypoxia with ambulation. The EKG and troponin were negative of ACS/MS. Influenza testing was also negative. She was presumed to have Acute Bronchitis and was discharged home on Ax, inhaler and short course of Prednisone. She was advised to return to the ED with worsening SOB. She states that she took the medications as prescribed. She returned to the ED this evening (05/09) with complaints of unrelieved dyspnea with the treatments. She states that she felt actually much worse with her SOB than the previous day she was seen at the ED. She stated that she felt more fatigued, weak and 'her legs felt too heavy and appeared more swollen.' She also noted increased swelling on her fingers. She denied the associated symptoms of Fever, and chills. She also denied n/v, Abdominal pain, Chest Pain and Palpitations. At the ED tonight, the CXR did not have any acute cardiopulmonary findings. Laboratory findings showed: BNP-->190 , WBC -->2,500 with a left shift & D-Dimer 1.06. A follow-up CTA did not reveal any Pulmonary Embolism. The nebulizer treatments the ED still did not provide any relief. She did not require any oxygen supplementation. She will be admitted under observation status for remote telemetry monitoring & due to unrelieved dyspnea which has failed to respond to outpatient treatment and needs further work-up. - Patient's Past Medical History Patient History - Medical: Anemia, Anxiety, Diabetes Type 2 Insulin Dependent, Depression, Other Patient History - Cardiac/Respiratory: Hyperlipidemia, Sleep Apnea Patient History - Cancer: No Hx of Cancer Patient History - Surgical Procedures: Cholecystectomy, Hysterectomy, Orthopedic Patient History - Other: None LMP (females 10-50): Menopausal - Family History Father Family History - Medical: , No pertinent hx Mother Family History - Medical: Family History - Cancer: Breast Brother Family History - Medical: Diabetes Type 2, Glaucoma, Other Sister Family History - Medical: , Diabetes Type 2, Glaucoma Children Family History - Medical: - Social History Living Situations: home Abuse History: No History of abuse Psych History: Hx of Anxiety, Hx of Depression, Current tx/ever been on anti- depressants or anti-anxiety meds Smoking Status: Never smoker Alcohol Use: occasionally Drug Use: none - Immunizations Immunizations Up to Date: Yes Hx Pneumococcal Vaccination: Yes History of Influenza Vaccine: Yes Review Of Systems (GEN) - Review of Systems Generalized/Overall Review: Present: Weakness, Malaise. Absent: Chills, Fever, Fatigue EENTM: Absent: Eye Pain, Blurred Vision, Ear Discharge, Nose Congestion Respiratory: Present: Cough, Shortness of Breath, Wheezing. Absent: Orthopnea, Stridor Cardiac: Present: Edema. Absent: Chest Pain, Palpitations, Syncope Abdominal: Absent: Nausea, Vomiting, Hematemesis, Abdominal Pain, Constipation, Diarrhea Genitourinary: Absent: Burning, Itching, Urgency, Frequency Musculoskeletal: Absent: Joint Pain, Back Pain, Joint Swelling Neurological: Present: Weakness. Absent: Headache, Anxiety, Depressed Skin: Absent: Dryness, Lesions Endocrine: Absent: Intolerance to Cold, Flushing, Increased Thirst Misc: All systems neg except as marked Immunizations: IMMUNIZATION HX Immunizations Up to Date Yes History of Influenza Vaccine Yes Hx Pneumococcal Vaccination Yes Allergies/Adverse Reactions: Allergies Allergy/AdvReac Type Severity Reaction Status Date / Time No Known Allergies Allergy Verified 05/08/17 09:29 Home Medications: HOME MEDICATIONS Atorvastatin Calcium 20 mg PO HS 11/13/16 [Last Taken 05/08/17 22:00] Gabapentin [Neurontin] 600 mg PO BID 11/13/16 [Last Taken 05/09/17 09:00] Insulin Detemir [Levemir] 30 units SC HS 11/13/16 [Last Taken 05/08/17 22:00] Propranolol HCl 20 mg PO BID 11/13/16 [Last Taken 05/09/17 09:00] glipiZIDE [Glipizide] 5 mg PO BID 11/13/16 [Last Taken 05/09/17 09:00] metFORMIN HCL [Glucophage] 1,000 mg PO BID 11/13/16 [Last Taken 05/09/17 10:00] rOPINIRole HCL [Requip] 2 mg PO HS 11/13/16 [Last Taken 05/08/17 22:00] traZODone HCL [Trazodone HCl] 25 mg PO HS 11/13/16 [Last Taken 05/08/17 22:00] Meclizine HCl [Dramamine Less Drowsy] 25 mg PO Q8H PRN #20 tablet 11/18/16 [ Last Taken Unknown] Melatonin 6 mg PO HS 11/18/16 [Last Taken 05/08/17 22:00] Albuterol Sulfate [Albuterol Sulfate 2.5 MG/3 ML] 2.5 mg IH Q4H PRN #1 vial.neb 05/08/17 [Last Taken 05/09/17 14:00] Albuterol Sulfate [Proair Hfa] 2 puff IH Q4H PRN #1 inhaler 05/08/17 [Last Taken Unknown] Levofloxacin [Levaquin] 500 mg PO DAILY 9 Days #9 tab 05/08/17 [Last Taken 05/09 09:00] Nebulizer [Aeroeclipse II] 1 each MC Q4H #1 each 05/08/17 [Last Taken Unknown] predniSONE [Prednisone] 2 tab PO DAILY 5 Days #10 tab 05/08/17 [Last Taken 05/09 09:00] Exam - Exam Vital Signs: Vital Signs - Last Taken Temp 36.8 C 05/09/17 18:02 Pulse 77 05/09/17 22:35 Resp 20 05/09/17 22:35 BP 117/43 05/09/17 22:35 Pulse Ox 98 05/09/17 22:35 Constitutional: Present: Alert, Oriented x3, Cooperative, Mild distress ENT Exam: Present: normal ENT inspection. Absent: dry mucous membranes Eye Exam: bilateral eye: normal inspection, PERRL Neck: Present: non-tender, full range of motion, supple Back Exam: Present: normal inspection Respiratory: Present: accessory muscle use, No rales, No wheezing Cardiovascular/Chest: Present: normal peripheral pulses, regular rate, rhythm Abdomen: Present: Normal bowel sounds, soft, obese /Rectal: Present: Exam deferred Extremity: Present: calf tenderness - RT leg, lower extremity edema - Non pitting BLE Skin Exam: Present: warm/dry, no cyanosis Lymphatic: Present: no adenopathy Neurologic: Present: alert Diagnostic Studies: Laboratory Results WBC 2.5 K/mm3 (4.0-10.5) L D 05/09/17 16:35 RBC 3.33 M/mm3 (4.2-5.4) L 05/09/17 16:35 Hgb 9.9 gm/dL (12.5-16.0) L 05/09/17 16:35 Hct 30.9 % (37.0-47.0) L 05/09/17 16:35 MCV 92.8 fl (78-100) 05/09/17 16:35 MCH 29.7 pg (27-31) 05/09/17 16:35 MCHC 32.0 g/dl (32-36) 05/09/17 16:35 RDW 14.3 % (11.5-14.0) H 05/09/17 16:35 Plt Count 61 K/mm3 (150-450) L 05/09/17 16:35 MPV 10.4 fl (6.0-9.5) H 05/09/17 16:35 Immature Gran % (Auto) 0.80 % (0.001-0.429) H 05/09/17 16:35 Immature Gran # (Auto) 0.02 K/mm3 (0.000-0.0310) 05/09/17 16:35 Neutrophils % 80.2 % (42-75.0) H 05/09/17 16:35 Lymphocytes % 12.1 % (20-51) L 05/09/17 16:35 Monocytes % 5.3 % (0.0-9) 05/09/17 16:35 Eosinophils % 1.2 % (0.0-3.0) 05/09/17 16:35 Basophils % 0.4 % (0.0-1.0) 05/09/17 16:35 Nucleated RBC % 0.0 k/mm3 (0-1) 05/09/17 16:35 Neutrophils # 2.0 K/mm3 (1.3-6.0) 05/09/17 16:35 Lymphocytes # 0.3 k/mm3 (1.5-3.5) L 05/09/17 16:35 Monocytes # 0.1 k/mm3 (0.0-1.0) 05/09/17 16:35 Eosinophils # 0.0 k/mm3 (0.0-0.7) 05/09/17 16:35 Absolute Basophils 0.0 k/mm3 (0.0-0.1) 05/09/17 16:35 D-Dimer 1.06 mg/L (0.19-0.49) H 05/09/17 16:35 Sodium 141 mmol/L (132-142) 05/09/17 16:35 Plasma Sodium 146 mmol/L (130-142) H 05/09/17 16:35 Potassium 4.2 mmol/L (3.4-4.6) 05/09/17 16:35 Chloride 109 mmol/L (97-106) H 05/09/17 16:35 Carbon Dioxide 23.7 mmol/L (24-32.6) L 05/09/17 16:35 Anion Gap 12.5 mmol/L (6.8-13.8) 05/09/17 16:35 BUN 16 mg/dL (3-23) 05/09/17 16:35 Creatinine 1.10 mg/dL (0.4-1.4) 05/09/17 16:35 Est GFR (Non-Af Amer) 52 mL/min (60-130) L D 05/09/17 16:35 BUN/Creatinine Ratio 14.5 (9.0-21.6) 05/09/17 16:35 Random Glucose 424 mg/dL (70-110) H D 05/09/17 16:35 Calcium 8.6 mg/dL (7.9-10.9) 05/09/17 16:35 Calcium Adj for Albumin 9.5 mg/dL (8.4-10.2) 05/09/17 16:35 Total Bilirubin 1.1 mg/dL (0.0-1.1) 05/09/17 16:35 AST 29 U/L (0-48) 05/09/17 16:35 ALT 26 U/L (19-67) 05/09/17 16:35 Alkaline Phosphatase 129 U/L (50-170) 05/09/17 16:35 Troponin I 0.024 ng/ml (0.00-0.10) 05/09/17 16:35 B-Natriuretic Peptide 190 pg/mL (5-325) 05/09/17 16:35 Total Protein 6.4 gm/dL (6.2-8.2) 05/09/17 16:35 Albumin 2.5 gm/dl (3.4-5.0) L 05/09/17 16:35 Assessment/Plan - Assessment/Plan (1) Dyspnea Assessment: Pt is a 72-yr Female pt who presented with unrelieved dyspnea despite outpatient treatment with Ax, nebulizer treatments and Prednisone. Among C/C were increasing leg, hand swelling and coughing. On Physical exam, No stridor, hypoxemia, hypotension and cyanosis. She has accessory muscle use with minimal movement. CXR did not show any cardiopulmonary disease. BNP was in NR therefore Heart Failure is unlikely. EKG and Troponin obtained in both ER visits did not show any evidence of ACS/MS. D-dimer was elevated at 1.06 and a follow-up with CTA did not show any evidence of Pulmonary Embolism. She has never been a smoker to cause suspicion of constrictive lung diseases such as COPD. However her increased swelling in upper and lower extremities and unrelieved dyspnea still warrant to be investigated. BNP and CXR do no show signs of HF, but with enlarged cardiac sihouette, she could be developing early signs of HF. Will attempt diuresing with Lasix to see if it will provide relief with Dyspnea. She also has hx of Portal Hypertension which can cause accumulation of fluid within the peritoneal cavity and result in Ascites. The dyspnea could also be likely from fluid accumulation and increased abdominal pressure. However, It's difficult to physically examine her for Ascites due to Morbid obesity. Therefore , we may need an upper abdominal US to confirm the presence of Ascites and to determine if paracentesis will be necessary, otherwise treatment with Diuretics and Na restricted diet is recommended for small volumes of ascitic fluid. Problem: Acute (2) Diabetes Assessment: Will hold Metformin for now x 48 h- due to testing with contrast. Continue Glipizide and Levermir. Check Blood sugars ACHS, Consistent card diet. Problem: Chronic Qualifiers: Diabetes mellitus type: type 2 (3) Hypertension, portal Problem: Chronic (4) Anemia Problem: Chronic Qualifiers: Anemia type: iron deficiency (5) Obstructive sleep apnea Assessment: Will utilize our CPAP unit. Problem: Chronic (6) Cirrhosis of liver Problem: Chronic
[2017-05-09] MEDS ORDERED: GABAPENTIN 300 MG CAPSULE PO SCH (23:45)
[2017-05-09] MEDS ORDERED: NON-FORMULARY 1 DOSE DOSE (Albuterol Sulfate 2.5 MG) IH PRN (23:47)
[2017-05-09] MEDS ORDERED: MECLIZINE HCL 25 MG TABLET PO PRN (23:47)
[2017-05-10] MEDS ORDERED: FUROSEMIDE 10 MG/ML VIAL IV ONE (00:09)
[2017-05-10] MEDS: INSULIN DETEMIR 100 UNITS/ML VIAL SC SCH ×2 (00:50→22:24)
--- NOTE | 2017-05-10 05:30 | PN ---
Subjective - Date and Time Seen Date: 05/10/17 Time: 06:16 Subjective Narrative: Pt examined this am. Complains of headache and coughing all night. states the tremors are new and bothering her. Received Lasix 40mg and diuresed about 1700ml. Objective - Vitals Vitals: Last Vital Signs Temp 36.7 C 05/10/17 03:40 Pulse 75 05/10/17 03:40 Resp 18 05/10/17 03:40 BP 137/67 05/10/17 03:40 Pulse Ox 99 05/10/17 03:40 - Exam Constitutional: Present: Alert, Oriented x3, Cooperative, Mild distress ENT Exam: Present: normal ENT inspection, muffled/hoarse voice Neck: Present: non-tender, full range of motion, supple Breasts: Present: Exam deferred Respiratory: Present: accessory muscle use, No rales, No wheezing Cardiovascular/Chest: Present: normal peripheral pulses, regular rate, rhythm, no chest tenderness, edema Abdomen: Present: Normal bowel sounds, soft, obese /Rectal: Present: Exam deferred Extremity: Present: normal range of motion, lower extremity edema - 1-2+ katherine. tibial/pedal edema Skin Exam: Present: warm/dry Lymphatic: Present: no adenopathy Neurologic: Present: no motor/sensory deficits, alert, oriented x 3 Appearance: Present: appropriate appearance, appropriate insight Eye contact: Present: cooperative, good eye contact, normal speech Thoughts: Present: no apparent hallucination Assessment/Plan - Problems/Diagnosis (1) Dyspnea Problem: Acute Narrative: Pt is a 72-yr Female pt who presented with unrelieved dyspnea despite outpatient treatment with Ax, nebulizer treatments and Prednisone. Among C/C were increasing leg, hand swelling and coughing. On Physical exam, No stridor, hypoxemia, hypotension and cyanosis. She has accessory muscle use with minimal movement. CXR did not show any cardiopulmonary disease. BNP was in NR therefore Heart Failure is unlikely. EKG and Troponin obtained in both ER visits did not show any evidence of ACS/ME. D-dimer was elevated at 1.06 and a follow-up with CTA did not show any evidence of Pulmonary Embolism. She has never been a smoker to cause suspicion of constrictive lung diseases such as COPD. However her increased swelling in upper and lower extremities and unrelieved dyspnea still warrant to be investigated. BNP and CXR do no show signs of HF, but with enlarged cardiac sihouette, she could be developing early signs of HF. Will attempt diuresing with Lasix to see if it will provide relief with Dyspnea. She also has hx of Portal Hypertension which can cause accumulation of fluid within the peritoneal cavity and result in Ascites. The dyspnea could also be likely from fluid accumulation and increased abdominal pressure. However, It's difficult to physically examine her for Ascites due to Morbid obesity. Therefore , we may need an upper abdominal US to confirm the presence of Ascites and to determine if paracentesis will be necessary, otherwise treatment with Diuretics and Na restricted diet is recommended for small volumes of ascitic fluid. 05/10- diuresed 1700ml. will determine daily doses. replace K this am--> was 3.0 (2) Diabetes Problem: Chronic Qualifiers: Diabetes mellitus type: type 2 Narrative: Will hold Metformin for now x 48 h- due to testing with contrast. Continue Glipizide and Levermir. Check Blood sugars ACHS, Consistent card diet. (3) Acute bronchitis Problem: Acute Narrative: Still having persisitent coughing. No exp/ins. wheezing. Will provide symptomatic cares with antitussives and pain mgt. (4) Hypertension, portal Problem: Chronic (5) Anemia Problem: Chronic Qualifiers: Anemia type: iron deficiency (6) Obstructive sleep apnea Problem: Chronic Narrative: CPAP at night. (7) Cirrhosis of liver Problem: Chronic
[2017-05-10] MEDS ORDERED: ACETAMINOPHEN 325 MG TABLET PO PRN ×2 (05:51→06:25)
[2017-05-10 05:54] LABS: Hematocrit 31.4 % (37.0-47.0); Hemoglobin 10.1 gm/dL (12.5-16.0); Mean Cell Volume 91.3 fl (78-100); Mean Corpuscular Hemoglobin 29.4 pg (27-31); Mean Corpuscular Hgb Conc 32.2 g/dl (32-36); Mean Platelet Volume 10.5 fl (6.0-9.5); Neutrophil # 1.8 K/mm3 (1.3-6.0); Neutrophil % 65.9 % (42-75.0); Platelet Count 67 K/mm3 (150-450); Red Blood Count 3.44 M/mm3 (4.2-5.4); Red Cell Distribution Width 14.2 % (11.5-14.0); White Blood Count 2.7 K/mm3 (4.0-10.5)
[2017-05-10 06:08] LABS: Anion Gap 10.2 mmol/L (6.8-13.8); BUN/Creatinine Ratio 14.7 (9.0-21.6); Calcium * 9.1 mg/dL (7.9-10.9); Carbon Dioxide 29.8 mmol/L (24-32.6); Estimated Creat Clear 57.4
[2017-05-10] MEDS: glipiZIDE 5 MG TABLET PO SCH ×2 (07:27→17:42)
[2017-05-10] MEDS: guaiFENesin/DEXTROMETHORPHAN 118 ML BTL PO PRN ×4 (07:33→22:25)
[2017-05-10] MEDS ORDERED: POTASSIUM CHLORIDE 20 MEQ TABLET.SA PO ONE ×2 (08:00→12:00)
[2017-05-10] MEDS: GABAPENTIN 600 MG TABLET PO SCH ×2 (08:34→19:34)
[2017-05-10] MEDS: PROPRANOLOL HCL 20 MG TABLET PO SCH ×2 (08:34→22:09)
[2017-05-10] MEDS ORDERED: AZITHROMYCIN 500 MG in DEXTROSE 5 % IN WATER 250 ML IV ONE ×2 (10:56)
[2017-05-10] MEDS: ACETAMINOPHEN 325 MG TABLET PO PRN ×2 (11:53→17:43)
[2017-05-10] MEDS: METHYLPREDNISOLONE SOD SUCC 40 MG in WATER FOR INJ.,BACTERIOSTATIC 0 ML IV SCH ×2 (12:01→19:26)
[2017-05-10] MEDS: ENOXAPARIN SODIUM 40 MG/0.4 ML SYRG SC SCH (12:15)
[2017-05-10 12:24] LABS: Total Cells Counted 100
[2017-05-10 12:43] LABS: Band 4 % (0-2.0); Basophil 1 % (0-1); Eosinophil 1 % (0-3); Lymphocyte 21 % (20-51); Monocyte 15 % (0-9); Neutrophil 58 % (42-75); Neutrophil # 1.6 K/mm3 (1.3-6.0)
[2017-05-10 12:44] LABS: Platelet Estimate Decreased (NORMAL)
[2017-05-10 12:45] LABS: Basophilic Stippling Trace; Polychromasia Trace
[2017-05-10 12:46] LABS: Rouleaux 1+
[2017-05-10 12:47] LABS: Toxic Granulation Trace
[2017-05-10] MEDS ORDERED: FLU VACC QS2017-18(6MOS UP)/PF 60 MCG/0.5 ML SYRINGE IM ONE (15:00)
[2017-05-10] MEDS: ALBUTEROL SULFATE/IPRATROPIUM 3 ML NEBU IH SCH (18:06)
[2017-05-10] MEDS: traZODone HCL 50 MG TABLET PO SCH (19:27)
[2017-05-10] MEDS: MELATONIN 3,000 MCG TABLET PO SCH (19:30)
[2017-05-10] MEDS: ROSUVASTATIN CALCIUM 10 MG TABLET PO SCH (22:09)
[2017-05-10] MEDS: rOPINIRole HCL 1 MG TABLET PO SCH (22:10)
[2017-05-10] MEDS: INSULIN LISPRO 100 UNITS/ML VIAL SC SCH (22:39)
[2017-05-11] MEDS: GABAPENTIN 600 MG TABLET PO SCH ×3 (01:39→20:08)
[2017-05-11] MEDS: MELATONIN 3,000 MCG TABLET PO SCH ×2 (01:39→20:08)
[2017-05-11] MEDS: traZODone HCL 50 MG TABLET PO SCH ×2 (01:39→20:03)
[2017-05-11] MEDS: METHYLPREDNISOLONE SOD SUCC 40 MG in WATER FOR INJ.,BACTERIOSTATIC 0 ML IV SCH ×3 (04:46→20:03)
--- NOTE | 2017-05-11 05:45 | PN ---
Subjective - Date and Time Seen Date: 05/11/17 Time: 06:32 Subjective Narrative: Pt seen this am. States she feels much relieved with her SOB and coughing. Swelling on BLE still present. Will give more Lasix. Reports tolerating ambulation well. No other acute events Objective - Vitals Vitals: Last Vital Signs Temp 36.5 C 05/11/17 02:34 Pulse 62 05/11/17 03:25 Resp 20 05/11/17 03:25 BP 133/66 05/11/17 02:34 Pulse Ox 93 05/11/17 03:25 - Abnormal Lab Findings Abnormal Lab Findings: Abnormal Lab Results 05/10/17 Range/Units 11:15 Percent Retic 3.0 H (0.4-1.8) % Immature Retic Fraction 22.0 H (3.0-15.9) % - Exam Constitutional: Present: Alert, Oriented x3, Cooperative, No distress ENT Exam: Present: normal ENT inspection, hearing grossly normal, muffled/ hoarse voice. Absent: nasal congestion, nasal drainage Neck: Present: non-tender, full range of motion Breasts: Present: Exam deferred Respiratory: Present: No rales, No wheezing Cardiovascular/Chest: Present: normal peripheral pulses, regular rate, rhythm, no chest tenderness Abdomen: Present: Normal bowel sounds, soft, nontender, obese /Rectal: Present: Exam deferred Extremity: Present: normal range of motion, non-tender, lower extremity edema - 1-2 + tibial pedal edema Skin Exam: Present: warm/dry, no cyanosis Lymphatic: Present: no adenopathy Neurologic: Present: no motor/sensory deficits, alert, oriented x 3 Appearance: Present: appropriate appearance, appropriate insight Eye contact: Present: cooperative, good eye contact, normal speech Thoughts: Present: normal thought pattern, no apparent hallucination Assessment/Plan - Problems/Diagnosis (1) Esophageal mass Problem: Acute Narrative: Official CT report showed showed a subcarinal LAD vs a mid esophageal mass. We will get an esophagram. ? The esophageal mass could be the cause of his persistent cough. (2) Dyspnea Problem: Acute Narrative: Pt is a 72-yr Female pt who presented with unrelieved dyspnea despite outpatient treatment with Ax, nebulizer treatments and Prednisone. Among C/C were increasing leg, hand swelling and coughing. On Physical exam, No stridor, hypoxemia, hypotension and cyanosis. She has accessory muscle use with minimal movement. CXR did not show any cardiopulmonary disease. BNP was in NR therefore Heart Failure is unlikely. EKG and Troponin obtained in both ER visits did not show any evidence of ACS/ND. D-dimer was elevated at 1.06 and a follow-up with CTA did not show any evidence of Pulmonary Embolism. She has never been a smoker to cause suspicion of constrictive lung diseases such as COPD. However her increased swelling in upper and lower extremities and unrelieved dyspnea still warrant to be investigated. BNP and CXR do no show signs of HF, but with enlarged cardiac sihouette, she could be developing early signs of HF. Will attempt diuresing with Lasix to see if it will provide relief with Dyspnea & swelling. (3) Pancytopenia Problem: Acute Narrative: RTC is high, therefore Aplastic anemia is unlikely. ? the need for bone marrow aspirate and biospy. Laboratory Tests 05/09/17 05/10/17 16:35 05:45 WBC 2.5 L D 2.7 L Hgb 9.9 L 10.1 L Plt Count 61 L 67 L (4) Diabetes Problem: Chronic Qualifiers: Diabetes mellitus type: type 2 Narrative: will hold Metformin for now x 48 h- due to testing with contrast. Continue Glipizide and Levermir. Check Blood sugars ACHS, Consistent card diet. 05/11-Moderate dose SSI started due to IV solumedrol (5) Acute bronchitis Problem: Acute Narrative: Since there was no response to outpt tx, we stepped up the treatment with Antibiotics, IV steroids, nebs and symptomatic cares with antitussives and analgesics. (6) Hypertension, portal Problem: Chronic (7) Anemia Problem: Chronic Qualifiers: Anemia type: iron deficiency (8) Obstructive sleep apnea Problem: Chronic (9) Cirrhosis of liver Problem: Chronic
[2017-05-11] MEDS: ALBUTEROL SULFATE/IPRATROPIUM 3 ML NEBU IH SCH ×2 (06:04→20:24)
[2017-05-11 06:21] LABS: Anion Gap 9.2 mmol/L (6.8-13.8); BUN/Creatinine Ratio 18.6 (9.0-21.6); Calcium * 8.7 mg/dL (7.9-10.9); Carbon Dioxide 29.1 mmol/L (24-32.6); Estimated Creat Clear 57.4; Potassium 4.3 mmol/L (3.4-4.6)
[2017-05-11] MEDS ORDERED: FUROSEMIDE 10 MG/ML VIAL IV ONE (06:37)
[2017-05-11] MEDS ORDERED: POTASSIUM CHLORIDE 20 MEQ TABLET.SA PO ONE (06:37)
[2017-05-11] MEDS: glipiZIDE 5 MG TABLET PO SCH ×2 (07:13→17:39)
[2017-05-11] MEDS: INSULIN LISPRO 100 UNITS/ML VIAL SC SCH ×4 (07:13→20:08)
[2017-05-11] MEDS: guaiFENesin/DEXTROMETHORPHAN 118 ML BTL PO PRN ×2 (07:13→11:34)
[2017-05-11] MEDS: PROPRANOLOL HCL 20 MG TABLET PO SCH ×2 (08:46→20:03)
[2017-05-11] MEDS: ENOXAPARIN SODIUM 40 MG/0.4 ML SYRG SC SCH (11:35)
[2017-05-11] MEDS: ALBUTEROL SULFATE 2.5 MG/0.5 ML VIAL.NEB IH PRN (16:18)
[2017-05-11] MEDS: ROSUVASTATIN CALCIUM 10 MG TABLET PO SCH (20:03)
[2017-05-11] MEDS: INSULIN DETEMIR 100 UNITS/ML VIAL SC SCH (20:04)
[2017-05-11] MEDS: rOPINIRole HCL 1 MG TABLET PO SCH (20:08)
[2017-05-12] MEDS: METHYLPREDNISOLONE SOD SUCC 40 MG in WATER FOR INJ.,BACTERIOSTATIC 0 ML IV SCH ×3 (02:56→19:24)
--- NOTE | 2017-05-12 05:41 | PN ---
Subjective - Date and Time Seen Date: 05/12/17 Subjective Narrative: Pt examined this am. States that she got dyspneic over the night. She states she had increased coughing and the nebs treatments make it worse. Awaiting Esophagram today. Objective - Vitals Vitals: Last Vital Signs Temp 36.8 C 05/12/17 02:37 Pulse 59 L 05/12/17 04:00 Resp 18 05/12/17 02:37 BP 123/51 05/12/17 02:37 Pulse Ox 95 05/12/17 02:37 - Abnormal Lab Findings Abnormal Lab Findings: Abnormal Lab Results 05/11/17 Range/Units 06:05 Sodium 143 H (132-142) mmol/L Plasma Sodium 146 H (130-142) mmol/L Chloride 109 H (97-106) mmol/L Est GFR (Non-Af Amer) 57 L (60-130) mL/min Random Glucose 270 H D (70-110) mg/dL - Exam Constitutional: Present: Alert, Oriented x3, Cooperative, No distress ENT Exam: Present: normal ENT inspection Neck: Present: non-tender, full range of motion, supple Breasts: Present: Exam deferred Respiratory: Present: No rales, No wheezing, other - coarse Cardiovascular/Chest: Present: normal peripheral pulses, regular rate, rhythm, no chest tenderness Abdomen: Present: Normal bowel sounds, soft /Rectal: Present: Exam deferred Extremity: Present: normal range of motion, non-tender, normal inspection Skin Exam: Present: warm/dry, no cyanosis Neurologic: Present: alert, normal mood/affect, oriented x 3 Appearance: Present: appropriate appearance, appropriate insight Eye contact: Present: cooperative, good eye contact, normal speech Thoughts: Present: normal thought pattern, no apparent hallucination Assessment/Plan - Problems/Diagnosis (1) Esophageal mass Problem: Acute Narrative: Official CT report showed showed a subcarinal LAD vs a mid esophageal mass. We will get an esophagram. ? The esophageal mass could be the cause of his persistent cough. (2) Dyspnea Problem: Acute Narrative: Pt is a 72-yr Female pt who presented with unrelieved dyspnea despite outpatient treatment with Ax, nebulizer treatments and Prednisone. Among C/C were increasing leg, hand swelling and coughing. On Physical exam, No stridor, hypoxemia, hypotension and cyanosis. She has accessory muscle use with minimal movement. CXR did not show any cardiopulmonary disease. BNP was in NR therefore Heart Failure is unlikely. EKG and Troponin obtained in both ER visits did not show any evidence of ACS/ID. D-dimer was elevated at 1.06 and a follow-up with CTA did not show any evidence of Pulmonary Embolism. She has never been a smoker to cause suspicion of constrictive lung diseases such as COPD. However her increased swelling in upper and lower extremities and unrelieved dyspnea still warrant to be investigated. BNP and CXR do no show signs of HF, but with enlarged cardiac sihouette, she could be developing early signs of HF. Will attempt diuresing with Lasix to see if it will provide relief with Dyspnea & swelling. Dyspnea could also be from Acute bronchitis. (3) Pancytopenia Problem: Acute Narrative: Peripheral smear pending. Laboratory Tests 05/09/17 05/10/17 16:35 05:45 WBC 2.5 L D 2.7 L Hgb 9.9 L 10.1 L Plt Count 61 L 67 L (4) Diabetes Problem: Chronic Qualifiers: Diabetes mellitus type: type 2 Narrative: will hold Metformin for now x 48 h- due to testing with contrast. Continue Glipizide and Levermir. Check Blood sugars ACHS, Consistent card diet. 05/11-Moderate dose SSI started due to IV solumedrol (5) Acute bronchitis Problem: Acute Narrative: Since there was no response to outpt tx, we stepped up the treatment with Antibiotics, IV steroids, nebs and symptomatic cares with antitussives and analgesics. (6) Hypertension, portal Problem: Chronic (7) Anemia Problem: Chronic Qualifiers: Anemia type: iron deficiency (8) Obstructive sleep apnea Problem: Chronic (9) Cirrhosis of liver Problem: Chronic
[2017-05-12 06:13] LABS: Hematocrit 31.5 % (37.0-47.0); Mean Cell Volume 90.8 fl (78-100); Mean Corpuscular Hemoglobin 28.8 pg (27-31); Mean Corpuscular Hgb Conc 31.7 g/dl (32-36); Mean Platelet Volume 11.9 fl (6.0-9.5); Neutrophil # 2.7 K/mm3 (1.3-6.0); Neutrophil % 77.7 % (42-75.0); Red Blood Count 3.47 M/mm3 (4.2-5.4); Red Cell Distribution Width 13.9 % (11.5-14.0); White Blood Count 3.4 K/mm3 (4.0-10.5)
[2017-05-12] MEDS: ALBUTEROL SULFATE/IPRATROPIUM 3 ML NEBU IH SCH ×3 (06:15→18:15)
[2017-05-12 06:22] LABS: Platelet Count 59 K/mm3 (150-450)
[2017-05-12 06:27] LABS: Anion Gap 9.3 mmol/L (6.8-13.8); Calcium * 9.1 mg/dL (7.9-10.9); Carbon Dioxide 29.1 mmol/L (24-32.6); Estimated Creat Clear 65.7; Potassium 4.4 mmol/L (3.4-4.6)
--- NOTE | 2017-05-12 06:41 | PATHPSR ---
PHYSICIAN: Lisbeth Jauregui MD LAB#: [id number] SPECIMEN DATE: 05/12/2016 CLINICAL INFORMATION: The patient is a 72-year-old woman with prior medical history of anemia (iron deficiency), diabetes mellitus type 2, cirrhosis of liver, portal hypertension and sleep apnea. Current admission is for dyspnea due to acute bronchitis. A peripheral smear evaluation is ordered due to pancytopenia. CBC: WBC 2.7 K/mm3, hemoglobin 10.1 gm/dl, hematocrit 31.4 %, MCV is 91.3 fl, MCH is 29.4 pg, MCHC is 32.2 g/dl, Platelet count 67,000. Manual differential: Neutrophils 58 %, bands 4 %, lymphocytes 21 %, monocytes 15 %, eosinophils 1 %, basophils 1 %. RED BLOOD CELLS: Mild normochromic, normocytic anemia with trace polychromasia, trace basophilic stippling, 1+ rouleau PLATELETS: Moderate thrombocytopenia WHITE BLOOD CELLS: Leukopenia with toxic granulation and bandemia DIAGNOSIS: PERIPHERAL BLOOD SMEAR, REVIEW BY PATHOLOGIST: -Pancytopenia COMMENT: Review of the peripheral smear does not give etiology for the pancytopenia. Absolute reticulocyte count is within normal limits 0.1051 which provides some evidence against aplastic anemia. Hematology consultation and possible bone marrow evaluation may be indicated for further evaluation. No immature elements or malignancy is identified on our examination.
[2017-05-12] MEDS: INSULIN LISPRO 100 UNITS/ML VIAL SC SCH ×4 (08:02→21:12)
[2017-05-12] MEDS: glipiZIDE 5 MG TABLET PO SCH ×2 (10:09→16:13)
[2017-05-12] MEDS: PROPRANOLOL HCL 20 MG TABLET PO SCH ×3 (10:09→22:54)
[2017-05-12] MEDS: GABAPENTIN 600 MG TABLET PO SCH ×3 (10:10→22:54)
[2017-05-12] MEDS: guaiFENesin/DEXTROMETHORPHAN 118 ML BTL PO PRN ×3 (10:11→21:13)
[2017-05-12] MEDS ORDERED: FLU VACC QS2017-18(6MOS UP)/PF 60 MCG/0.5 ML SYRINGE IM ONE (10:14)
[2017-05-12] MEDS: ENOXAPARIN SODIUM 40 MG/0.4 ML SYRG SC SCH (12:04)
[2017-05-12] MEDS: ALBUTEROL SULFATE 2.5 MG/0.5 ML VIAL.NEB IH PRN (13:34)
[2017-05-12] MEDS: ALPRAZolam 0.25 MG TABLET PO PRN (13:34)
[2017-05-12] MEDS: PANTOPRAZOLE SODIUM 40 MG TABLET.EC PO SCH (14:21)
[2017-05-12] MEDS: FLUTICASONE PROPIONATE 120 SPRAY INHALER NS SCH (14:22)
--- NOTE | 2017-05-12 17:10 | CONS ---
[facility] - General Date of Service: 05/12/17 Source: patient, family, RN notes reviewed, old records Exam Limitations: no limitations - History of Present Illness Timing/Duration: other - last week Modifying Factors - (Worsens): Reports: other - activity Modifying Factors - (Improves): Reports: rest Associated Symptoms: cough, shortness of breath Allergies/Adverse Reactions: Allergies No Known Allergies Allergy (Verified 05/08/17 09:29) Home Medications: Home Medications Medication Instructions Recorded Last Taken Atorvastatin Calcium 20 mg PO HS 11/13/16 05/08/17 22:00 Gabapentin [Neurontin] 600 mg PO BID 11/13/16 05/09/17 09:00 Insulin Detemir [Levemir] 30 units SC HS 11/13/16 05/08/17 22:00 Propranolol HCl 20 mg PO BID 11/13/16 05/09/17 09:00 glipiZIDE [Glipizide] 5 mg PO BID 11/13/16 05/09/17 09:00 metFORMIN HCL [Glucophage] 1,000 mg PO BID 11/13/16 05/09/17 10:00 rOPINIRole HCL [Requip] 2 mg PO HS 11/13/16 05/08/17 22:00 traZODone HCL [Trazodone HCl] 25 mg PO HS 11/13/16 05/08/17 22:00 Melatonin 6 mg PO HS 11/18/16 05/08/17 22:00 - Patient's Past Medical History Patient History - Medical: Anemia, Anxiety, Diabetes Type 2 Insulin Dependent, Depression, Other Patient History - Cardiac/Respiratory: Hyperlipidemia, Sleep Apnea Patient History - Cancer: No Hx of Cancer Patient History - Surgical Procedures: Cholecystectomy, Hysterectomy, Orthopedic Patient History - Other: None LMP (females 10-50): Menopausal - Family History Father Family History - Medical: , No pertinent hx Mother Family History - Medical: Family History - Cancer: Breast Brother Family History - Medical: Diabetes Type 2, Glaucoma, Other Sister Family History - Medical: , Diabetes Type 2, Glaucoma Children Family History - Medical: - Social History Living Situations: home Abuse History: No History of abuse Psych History: Hx of Anxiety, Hx of Depression, Current tx/ever been on anti- depressants or anti-anxiety meds Smoking Status: Never smoker Have you smoked in the past 12 months: No Do you dip or chew tobacco: No Alcohol Use: occasionally Drug Use: none - Immunizations Immunizations Up to Date: Yes Hx Pneumococcal Vaccination: Yes History of Influenza Vaccine: Yes Procedures INTRODUCE OF ANTI-INFLAM INTO EPIDURAL SPACE, PERC APPROACH (02/03/17) INTRODUCE OF LOCAL ANESTH INTO EPIDURAL SPACE, PERC APPROACH (02/03/17) Medications - Medications Current Medications: Current Medications Acetaminophen (Tylenol) 650 mg PO Q4H PRN PRN Reason: Mild pain (pain scale 1-3) Stop: 06/09/17 06:26 Last Admin: 05/10/17 17:43 Dose: 650 mg Albuterol Sulfate (Albuterol Sulfate 2.5 Mg/0.5ml) 2.5 mg IH Q4H PRN PRN Reason: Shortness Of Breath Stop: 06/08/17 23:46 Last Admin: 05/12/17 13:34 Dose: 2.5 mg Albuterol/Ipratropium (Duoneb 2.5-0.5mg/3ml Soln) 3 ml IH BIDRT [facility] Stop: 06/09/17 19:01 Last Admin: 05/12/17 06:15 Dose: Not Given Alprazolam (Xanax) 0.25 mg PO BID PRN PRN Reason: Anxiety Stop: 06/11/17 13:28 Last Admin: 05/12/17 13:34 Dose: 0.25 mg Enoxaparin Sodium (Lovenox) 40 mg SC Q24H [facility] Stop: 06/09/17 11:01 Last Admin: 05/12/17 12:04 Dose: 40 mg Fluticasone Propionate (Flonase) 1 spray NS DAILY [facility] Stop: 06/11/17 13:46 Last Admin: 05/12/17 14:22 Dose: 1 spray Gabapentin (Neurontin) 600 mg PO BID [facility] Stop: 06/08/17 23:46 Last Admin: 05/12/17 10:10 Dose: 600 mg Glipizide (Glucotrol) 5 mg PO BIDAC [facility] Stop: 06/09/17 07:01 Last Admin: 05/12/17 16:13 Dose: 5 mg Guaifenesin/Dextromethorphan (Robitussin-Dm) 10 ml PO Q4H PRN PRN Reason: Cough Stop: 06/09/17 06:27 Last Admin: 05/12/17 16:14 Dose: 10 ml Methylprednisolone Sodium (Succinate 40 mg/ Sterile Water) 0.32 mls @ 18 mls/ hr IV Q8H [facility] Stop: 06/09/17 11:01 Last Admin: 05/12/17 12:04 Dose: 60 mls/hr Insulin Detemir (Levemir) 30 units SC [facility] Stop: 06/08/17 23:51 Last Admin: 05/11/17 20:04 Dose: 30 units Insulin Human Lispro (Humalog) 0 units SC [facility] PRN Reason: Protocol Stop: 06/09/17 22:01 Last Admin: 05/12/17 12:02 Dose: 10 units Melatonin (Melatonin) 6,000 mcg PO [facility] Stop: 06/09/17 21:01 Last Admin: 05/11/17 20:08 Dose: 6,000 mcg Metformin HCl (Glucophage) 1,000 mg PO BIDWM [facility] Stop: 06/11/17 10:31 Last Admin: 05/12/17 16:13 Dose: 1,000 mg Pantoprazole Sodium (Protonix) 40 mg PO DAILY@0700 [facility] Stop: 06/11/17 13:46 Last Admin: 05/12/17 14:21 Dose: 40 mg Propranolol HCl (Inderal) 20 mg PO BID [facility] Stop: 06/09/17 09:01 Last Admin: 05/12/17 10:09 Dose: 20 mg Ropinirole HCl (Requip) 2 mg PO [facility] Stop: 06/09/17 21:01 Last Admin: 05/11/17 20:08 Dose: 2 mg Rosuvastatin Calcium (Crestor) 10 mg PO [facility] Stop: 06/09/17 21:01 Last Admin: 05/11/17 20:03 Dose: 10 mg Trazodone HCl (Desyrel) 25 mg PO [facility] Stop: 06/09/17 21:01 Last Admin: 05/11/17 20:03 Dose: 25 mg Review of Systems - Review of Systems Generalized/Overall Review: Present: Weakness, Malaise EENTM: Present: No Symptoms Reported Respiratory: Present: Cough, Shortness of Breath Cardiac: Present: No Symptoms Reported Abdominal: Present: No Symptoms Reported Genitourinary: Present: No Symptoms Reported Musculoskeletal: Present: No Symptoms Reported Neurological: Present: No Symptoms Reported Skin: Present: No Symptoms Reported Physical Examination - Exam Vital Signs: Vital Signs - Last Taken Temp 36.6 C 05/12/17 14:52 Pulse 63 05/12/17 14:52 Resp 18 05/12/17 14:52 BP 167/48 05/12/17 14:52 Pulse Ox 96 05/12/17 14:52 O2 Oxygen Delivery Method Room Air Constitutional: Present: Alert, Oriented x3, Cooperative, Mild distress ENT Exam: Present: normal ENT inspection Eye Exam: bilateral eye: normal inspection Neck: Present: normal inspection Respiratory: Present: accessory muscle use, rhonchi Cardiovascular/Chest: Present: regular rate, rhythm /Rectal: Present: Exam deferred Skin Exam: Present: warm/dry Neurologic: Present: president and chief operating officer II-XII nml as tested, no motor/sensory deficits Appearance: Present: appropriate appearance, appropriate insight Thoughts: Present: normal thought pattern - Results and Findings: Lab/Microbiology results last 24 hrs: Abnormal/Pending Laboratory Last 24 HRS 05/12/17 05/12/17 05:40 05:40 WBC 3.4 L D RBC 3.47 L Hgb 10.0 L Hct 31.5 L MCHC 31.7 L Plt Count 59 L MPV 11.9 H Neutrophils % 77.7 H Lymphocytes % 18.5 L Lymphocytes # 0.6 L Plasma Sodium 144 H Chloride 108 H BUN 24 H BUN/Creatinine Ratio 27.0 H Random Glucose 213 H Culture 05/10/17 11:15 Blood Culture - Preliminary Blood NO GROWTH AFTER 48 HOURS - Assessments/Findings (1) Esophageal mass Diagnosis(s): Chest CT for PE shows subcarinal mass and esophagram is indeterminate for lesion Reviewed and gave a pamphlet on EGD and talked to daughter DIEGO as well. Questions answered and informed consent for EGD obtained----NPO after MN for endoscopy at about 8AM tomorrow Problem: Acute
[2017-05-12] MEDS: traZODone HCL 50 MG TABLET PO SCH ×2 (19:29→22:54)
[2017-05-12] MEDS: ROSUVASTATIN CALCIUM 10 MG TABLET PO SCH ×2 (19:29→22:54)
[2017-05-12] MEDS: MELATONIN 3,000 MCG TABLET PO SCH ×2 (19:30→22:54)
[2017-05-12] MEDS: rOPINIRole HCL 1 MG TABLET PO SCH ×2 (19:31→22:54)
[2017-05-12] MEDS: INSULIN DETEMIR 100 UNITS/ML VIAL SC SCH (21:09)
[2017-05-13] MEDS: METHYLPREDNISOLONE SOD SUCC 40 MG in WATER FOR INJ.,BACTERIOSTATIC 0 ML IV SCH ×3 (02:39→18:46)
--- NOTE | 2017-05-13 05:33 | PN ---
Subjective - Date and Time Seen Date: 05/13/17 Subjective Narrative: Pt seen this am. Still bothered by her cough. Single contrast Esophagram was negative and therefore plan was to proceed with Endoscopic exam. Awaiting EGD by Dr. Cano today. No other acute events overnight. Objective - Vitals Vitals: Last Vital Signs Temp 37.0 C 05/13/17 01:21 Pulse 63 05/13/17 02:04 Resp 18 05/13/17 01:21 BP 142/88 05/13/17 01:21 Pulse Ox 97 05/13/17 01:21 - Abnormal Lab Findings Abnormal Lab Findings: Abnormal Lab Results 05/12/17 05/12/17 Range/Units 05:40 05:40 WBC 3.4 L D (4.0-10.5) K/mm3 RBC 3.47 L (4.2-5.4) M/mm3 Hgb 10.0 L (12.5-16.0) gm/dL Hct 31.5 L (37.0-47.0) % MCHC 31.7 L (32-36) g/dl Plt Count 59 L (150-450) K/mm3 MPV 11.9 H (6.0-9.5) fl Neutrophils % 77.7 H (42-75.0) % Lymphocytes % 18.5 L (20-51) % Lymphocytes # 0.6 L (1.5-3.5) k/mm3 Plasma Sodium 144 H (130-142) mmol/L Chloride 108 H (97-106) mmol/L BUN 24 H (3-23) mg/dL BUN/Creatinine Ratio 27.0 H (9.0-21.6) Random Glucose 213 H (70-110) mg/dL - Exam Constitutional: Present: Alert, Oriented x3, Cooperative, No distress ENT Exam: Present: normal ENT inspection Neck: Present: non-tender, full range of motion, supple Breasts: Present: Exam deferred Respiratory: Present: No rales, No wheezing Cardiovascular/Chest: Present: normal peripheral pulses, regular rate, rhythm, no chest tenderness Abdomen: Present: Normal bowel sounds, soft, nontender /Rectal: Present: Exam deferred Extremity: Present: normal range of motion, non-tender, normal inspection Skin Exam: Present: warm/dry, no cyanosis Lymphatic: Present: no adenopathy Neurologic: Present: alert, normal mood/affect, oriented x 3 Appearance: Present: appropriate appearance, appropriate insight Eye contact: Present: cooperative, good eye contact, normal speech Thoughts: Present: no apparent hallucination Assessment/Plan - Problems/Diagnosis (1) Esophageal mass Problem: Acute Narrative: Official CT report showed showed a subcarinal LAD vs a mid esophageal mass. We will get an esophagram. ? The esophageal mass could be the cause of his persistent cough. 05/12- She had single contrast Esophagram which was negative. Double contrast exam would be needed to examine the mucosal details better, but the pt needs to be able to tolerate standing in multiple positions. Plan is to proceed with Endoscopy with biopsy and cytology which still, would be the best way to establish diagnosis/es. 05/13- Dr. Cano already consulted and plans for an EGD today. (2) Dyspnea Problem: Acute Narrative: Pt is a 72-yr Female pt who presented with unrelieved dyspnea despite outpatient treatment with Ax, nebulizer treatments and Prednisone. Among C/C were increasing leg, hand swelling and coughing. On Physical exam, No stridor, hypoxemia, hypotension and cyanosis. She has accessory muscle use with minimal movement. CXR did not show any cardiopulmonary disease. BNP was in NR therefore Heart Failure is unlikely. EKG and Troponin obtained in both ER visits did not show any evidence of ACS/MT. D-dimer was elevated at 1.06 and a follow-up with CTA did not show any evidence of Pulmonary Embolism. She has never been a smoker to cause suspicion of constrictive lung diseases such as COPD. However her increased swelling in upper and lower extremities and unrelieved dyspnea still warrant to be investigated. BNP and CXR do no show signs of HF, but with enlarged cardiac sihouette, she could be developing early signs of HF. Will attempt diuresing with Lasix to see if it will provide relief with Dyspnea & swelling. Dyspnea could also be from Acute bronchitis. (3) Pancytopenia Problem: Acute Narrative: 05/12- Peripheral smear results back. It was found not to give etiology for the Pancytopenia. Abso. RTC was in NR, therefore Aplastic anemia thought to be very unlikely. Hematology consultation and need for bone marrow aspirate/ biopsy recommended. Laboratory Tests 05/09/17 05/10/17 16:35 05:45 WBC 2.5 L D 2.7 L Hgb 9.9 L 10.1 L Plt Count 61 L 67 L (4) Diabetes Problem: Chronic Qualifiers: Diabetes mellitus type: type 2 Narrative: will hold Metformin for now x 48 h- due to testing with contrast. Continue Glipizide and Levermir. Check Blood sugars ACHS, Consistent card diet. 05/11-Moderate dose SSI started due to IV solumedrol (5) Acute bronchitis Problem: Acute Narrative: Since there was no response to outpt tx, we stepped up the treatment with Antibiotics, IV steroids, nebs and symptomatic cares with antitussives and analgesics. 05/12- Neb treatment stopped as it was exacerbating her cough. Stated on PPI incase the GERD symptoms causing the cough and also flonase - incase of Posterior nasal dripping. (6) Hypertension, portal Problem: Chronic (7) Anemia Problem: Chronic Qualifiers: Anemia type: iron deficiency (8) Obstructive sleep apnea Problem: Chronic (9) Cirrhosis of liver Problem: Chronic
[2017-05-13] MEDS: ALBUTEROL SULFATE/IPRATROPIUM 3 ML NEBU IH SCH ×2 (05:59→17:59)
[2017-05-13] MEDS: INSULIN LISPRO 100 UNITS/ML VIAL SC SCH ×4 (06:47→20:36)
[2017-05-13] MEDS ORDERED: RINGER'S SOLUTION,LACTATED 1,000 ML IV ONE (07:50)
[2017-05-13] MEDS: glipiZIDE 5 MG TABLET PO SCH ×2 (08:35→16:51)
[2017-05-13] MEDS: PANTOPRAZOLE SODIUM 40 MG TABLET.EC PO SCH (08:35)
[2017-05-13] MEDS: FLUTICASONE PROPIONATE 120 SPRAY INHALER NS SCH (08:35)
[2017-05-13] MEDS: guaiFENesin/DEXTROMETHORPHAN 118 ML BTL PO PRN ×2 (08:36→20:45)
[2017-05-13] MEDS: PROPRANOLOL HCL 20 MG TABLET PO SCH ×2 (08:36→20:37)
[2017-05-13] MEDS: GABAPENTIN 600 MG TABLET PO SCH ×2 (08:36→20:38)
--- NOTE | 2017-05-13 09:43 | OR ---
Operative Report - Dictated Report Narrative: Operative Report Date of operation: 05/13/2017 Preoperative diagnosis: Subcarinal mass Postoperative diagnosis: Esophageal varices. No mucosal lesions. Hiatal hernia. Gastropathy with punctate gastric ulcers (pathology and CLOtest pending ) Operation: EGD with gastric biopsies Surgeon: Dr Cano Anesthesia: QASIM BURCH CRNA Indications for procedure: The patient is a 72-year-old female admitted by Dr Jauregui. She has CT scan suggestion of the subcarinal or esophageal mass. Esophagram was indeterminate. Findings: No thuan esophageal mucosal lesion. Esophageal varices. Irregular GE junction. Gastropathy with punctate ulcerations (pathology and CLOtest pending) Narrative of procedure: The patient was identified preoperatively, and prior to the administration of anesthetic a multidisciplinary timeout was observed With the patient in the recumbent position, a bite-block was placed, intravenous sedation administered, and the patient's eyes covered with a towel. The flexible fiberoptic gastroscope was advanced into the posterior pharynx which appeared normal. There was marked crowding of the structures relieved with a jaw thrust maneuver. The supraglottic larynx appeared normal. The cords appeared normal, moved well, and opposed in the midline. The scope was advanced under direct vision into the proximal esophagus which appeared normal. The esophagus appeared freely distensible with normal mucosa. There were esophageal varices in the distal one third of the esophagus. The esophageal mucosa appeared normal down to the gastroesophageal junction where the mucosal transition was somewhat irregular. The GE junction appeared normally distensible. The scope was advanced into the stomach which was insufflated with air. There was marked distal gastric erythema with punctate ulcerations. A retroflexed view of the gastric fundus revealed no additional lesions. The pylorus appeared patent. The scope was advanced into the duodenal bulb which appeared normal. The scope was advanced further to the horizontal portion of the duodenum which appeared normal, specifically the villous architecture appeared well preserved and clear bile was present. The scope was slowly withdrawn through the duodenal bulb with confirmation that no active ulcer was present. The scope was withdrawn into the stomach and textile machinery sales representative biopsies of gastric mucosa obtained for CLOtest and pathology. The biopsy sites were seen to be hemostatic. The insufflated air was removed from the stomach. The scope was then slowly withdrawn up the esophagus with confirmation of previous findings of varices and no thuan esophageal mucosal lesions. The scope was then withdrawn from the patient, and the procedure terminated. The patient tolerated the anesthetic and procedure well without complication and was transferred back to the floor awake and in stable condition. Reviewed and electronically signed
[2017-05-13] MEDS: ENOXAPARIN SODIUM 40 MG/0.4 ML SYRG SC SCH (10:26)
[2017-05-13] MEDS: ALPRAZolam 0.25 MG TABLET PO PRN (10:32)
[2017-05-13] MEDS: ROSUVASTATIN CALCIUM 10 MG TABLET PO SCH (20:35)
[2017-05-13] MEDS: INSULIN DETEMIR 100 UNITS/ML VIAL SC SCH (20:37)
[2017-05-13] MEDS: traZODone HCL 50 MG TABLET PO SCH (20:37)
[2017-05-13] MEDS: rOPINIRole HCL 1 MG TABLET PO SCH (20:38)
[2017-05-13] MEDS: MELATONIN 3,000 MCG TABLET PO SCH (20:38)
[2017-05-14] MEDS: METHYLPREDNISOLONE SOD SUCC 40 MG in WATER FOR INJ.,BACTERIOSTATIC 0 ML IV SCH (02:19)
[2017-05-14] MEDS: ALBUTEROL SULFATE/IPRATROPIUM 3 ML NEBU IH SCH (06:04)
[2017-05-14] MEDS: PANTOPRAZOLE SODIUM 40 MG TABLET.EC PO SCH (07:03)
[2017-05-14] MEDS: glipiZIDE 5 MG TABLET PO SCH (07:03)
[2017-05-14] MEDS: INSULIN LISPRO 100 UNITS/ML VIAL SC SCH (07:41)
--- NOTE | 2017-05-14 08:12 | DS ---
(1) Complicated bronchitis Problem: Acute (2) Dyspnea Problem: Acute (3) Failure of outpatient treatment Problem: Acute (4) Generalized weakness Problem: Acute (5) Pancytopenia Problem: Acute (6) Cirrhosis of liver Problem: Chronic (7) Diabetes Problem: Chronic Qualifiers: Diabetes mellitus type: type 2 (8) Hypertension, portal Problem: Chronic (9) Obstructive sleep apnea Problem: Chronic (10) Persistent cough Problem: Acute (11) Acute erosive gastritis Problem: Acute Description of Stay: Rachael Guzman is a 72-yr-old [facility] pt of Dr. Andres Tavarez with a PMH of: Anemia (Iron deficiency), DM II, HLD, Portal Hypertension & Sleep Apnea who was admitted on 05/09/2017 for SOB, couhginf and weakness. On 05/05 when she arrived back, she begun feeling SOB. 6 days [employer], she begun Coughing, wheezing and her SOB seemed to get worse. She continued feeling so until on 05/08 when she came to the [facility] ER via the ambulance. She attributed her symptoms to the cold and hot weather changes from being [place] different regions. At the ED, she received treatment with nebs which resolved the wheezing. The CXR was not to have any acute findings. There was no hypoxia with ambulation. The EKG and troponin were negative of ACS/VA. Influenza testing was also negative. She was presumed to have Acute Bronchitis and was discharged home on Ax, inhaler and short course of Prednisone. She was advised to return to the ED with worsening SOB. She stated that she took the medications as prescribed. She returned to the ED this evening (05/09) with complaints of unrelieved dyspnea with the treatments. She felt actually much worse with her SOB than the previous day she was seen at the ED. She stated that she felt more fatigued, weak and 'her legs felt too heavy and appeared more swollen.' She also noted increased swelling on her fingers. She denied the associated symptoms of Fever, and chills. She also denied n/v, Abdominal pain, Chest Pain and Palpitations. At the ED, the repeat CXR did not have any acute cardiopulmonary findings. Laboratory findings showed: BNP-->190 , WBC -->2,500 with a left shift & D-Dimer 1.06. A follow-up CTA did not reveal any Pulmonary Embolism. The nebulizer treatments the ED still did not provide any relief. She did not require any oxygen supplementation. She was for unrelieved dyspnea which has failed to respond to outpatient treatment. She was stared on azythromycin, nebs and breathing treatment. Her CTA showed a possible subcarinal LAD vs mid esophageal mass. An esophagram was equivocal . An EGD showed no mass but severe gasritis with ulcerations. She is on PPI. She is persistently coughing but slightly improved now and this could be due to reflux too. She also has pancytopenia and although it could be due to her liver cirrhosis from [place] with the possible LAD on CTS , will refer her to hematology /oncology for evaluation. [place] prior to [place] for strengthening . Procedures Performed: see notes below - EGD with biopsy Discharge Disposition: [facility] Disposition: [facility] Condition: Stable Discharge Activity: Activity as tolerated Discharge Diet: Consistent carbs Discharge Level of Care:: SNF - Custodial Custodial Therapy: Physicial Therapy, Occupation Therapy Referrals: Andres Tavarez MD [Primary Care Provider] - Problem Oriented Discharge Instructions to Patient/Family: Acute Bronchitis, [id number] Additional Patient Instructions (free text): To [facility] SNF. Please make an appointment with hematology/ oncology on outpatient basis for pancytopenia and probable subcarina lymphadenopathy. Will follow up patient in [place] while Dr. Tavarez is out. Prescriptions (Any new or edited meds): Acetaminophen [Tylenol] 650 mg PO Q4H PRN #30 tablet PRN Reason: Mild Pain (Pain Scale 1-3) Pantoprazole Sodium [Protonix] 40 mg PO DAILY@0700 #30 tablet. Complete Home Medications List: Complete Home Medication List: Atorvastatin Calcium 20 mg PO HS 11/13/16 Gabapentin [Neurontin] 600 mg PO BID 11/13/16 Insulin Detemir [Levemir] 30 units SC HS 11/13/16 Propranolol HCl 20 mg PO BID 11/13/16 glipiZIDE [Glipizide] 5 mg PO BID 11/13/16 metFORMIN HCL [Glucophage] 1,000 mg PO BID 11/13/16 rOPINIRole HCL [Requip] 2 mg PO HS 11/13/16 traZODone HCL [Trazodone HCl] 25 mg PO HS 11/13/16 Melatonin 6 mg PO HS 11/18/16 Albuterol Sulfate [Albuterol Sulfate 2.5 MG/3 ML] 2.5 mg IH Q4H PRN #1 vial.neb 05/08/17 Albuterol Sulfate [Proair Hfa] 2 puff IH Q4H PRN #1 inhaler 05/08/17 Nebulizer [Aeroeclipse II] 1 each MC Q4H #1 each 05/08/17 Acetaminophen [Tylenol] 650 mg PO Q4H PRN #30 tablet 05/14/17 Pantoprazole Sodium [Protonix] 40 mg PO DAILY@0700 #30 tablet. 05/14/17
[2017-05-14] MEDS: FLUTICASONE PROPIONATE 120 SPRAY INHALER NS SCH (09:04)
[2017-05-14] MEDS: PROPRANOLOL HCL 20 MG TABLET PO SCH (09:05)
[2017-05-14] MEDS: GABAPENTIN 600 MG TABLET PO SCH (09:07)
[2017-05-15 09:13] VITALS: BP 153/69
== END 2017-05-14 10:45 | DRG 202 ==
LOC: ER 16:04 → UNDOADMOB 19:48 → MS 19:48 → OBSVTOIN 05-10 10:17
PROVIDERS: ADMIT Nurse Practitioner; ATTEND Internal Medicine
PROC: 0DB68ZX Excision of Stomach, Via Natural or Artificial Opening Endoscopic, Diagnostic (ICD-10-PCS; principal; 2017-05-13)
DX: R53.1 Weakness; Z79.4 Long term (current) use of insulin; J20.9 Acute bronchitis, unspecified; K76.6 Portal hypertension; D61.818 Other pancytopenia; Z23 Encounter for immunization; R06.00 Dyspnea, unspecified; I85.00 Esophageal varices without bleeding; K74.60 Unspecified cirrhosis of liver; K29.00 Acute gastritis without bleeding; E11.9 Type 2 diabetes mellitus without complications; D50.9 Iron deficiency anemia, unspecified
CPT/HCPCS: 36415; 43239; 71045; 71046; 71275; 74220; 80048; 80053; 83605; 83880; 84484; 85007; 85025; 85045; 85379; 87040; 87070; 87081; 87400; 88305; 88312; 88313; 89220; 90686; 93005; 94640; 94660; 94760; 97110; 97116; 97162; 99284; 99285; G0008; G0378